=== PATIENT | female | born 1955 | race Caucasian/White ===

== ENCOUNTER → 2018-11-07 07:51 | Outpatient (CLI) | payer OTHER, SELFPAY ==
[2018-11-07 08:42] LABS: Hemoglobin A1C% w Est Avg Glu 6.4 % (4.0-6.0)
[2018-11-07 08:56] LABS: Blood Urea Nitrogen 15 mg/dL (7-17); Calcium 9.5 mg/dL (8.4-10.2); Carbon Dioxide 27 mmol/L (22-32); Chloride 101 mmol/L (98-107); Cholesterol 229 mg/dL (140-199); Estimated Glomerular Filt Rate > 60.0 mL/min (>60); Glucose 122 mg/dL (80-110); HDL Cholesterol 49 mg/dL (40-60); HEMOLYSIS < 15 (0-50); LDL Cholesterol Calculated 155 mg/dL (<100); Potassium 4.3 mmol/L (3.4-5.1); Sodium 140 mmol/L (137-145); Triglycerides 127 mg/dL (35-150)
== END ==
PROVIDERS: PCP Internal Medicine; Visit Provider Internal Medicine
DX: I10 Essential (primary) hypertension (principal); E11.9 Type 2 diabetes mellitus without complications; E78.5 Hyperlipidemia, unspecified
CPT/HCPCS: 36415; 80048; 80061; 83036

== ENCOUNTER → 2019-10-17 08:25 | Outpatient (CLI) | payer OTHER, SELFPAY ==
--- NOTE | 2019-10-17 | DI.MG.S_ITS ---
BILATERAL DIGITAL SCREENING MAMMOGRAM 3D/2D WITH CAD: 10/17/2019 CLINICAL: Routine screening. Comparison is made to exams dated: 05/03/2017 mammogram and 03/03/2015 mammogram - [facility]. The tissue of both breasts is predominantly fatty. Current study was also evaluated with a Computer Aided Detection (CAD) system. No significant masses, calcifications, or other findings are seen in either breast. There has been no significant interval change. IMPRESSION: NEGATIVE There is no mammographic evidence of malignancy. A 1 year screening mammogram is recommended. This exam was interpreted at Station ID: [id number]. NOTE: For mammograms, a report in lay terms will be sent to the patient. Approximately 15% of breast malignancies will not be visualized mammographically. In the management of a palpable breast mass, a negative mammogram must not discourage biopsy of a clinically suspicious lesion. Electronically Signed By: Jt singh/anna:10/17/2019 11:27:46 letter sent: Normal Exam ACR BI-RADS Category 1: Negative 3341F
== END ==
PROVIDERS: PCP Internal Medicine; Visit Provider Internal Medicine
DX: Z12.31 Encounter for screening mammogram for malignant neoplasm of breast (principal)
CPT/HCPCS: 77063; 77067

== ENCOUNTER → 2020-09-10 08:14 | Outpatient (CLI) | payer OTHER, SELFPAY ==
[2020-09-10 10:11] LABS: Cholesterol 205 mg/dL (140-199); HDL Cholesterol 47 mg/dL (40-60); LDL Cholesterol Calculated 123 mg/dL (<100); Triglycerides 174 mg/dL (35-150)
[2020-09-10 10:36] LABS: TSH w/ Reflex to FT4 1.93 uIU/mL (0.47-4.68)
[2020-09-10 10:57] LABS: Vitamin B12 389 pg/mL (239-931)
[2020-09-10 13:33] LABS: Mean Corpuscular HGB Conc 33.4 % (30-36); Mean Corpuscular Hemoglobin 31.3 PG (26-34); Mean Corpuscular Volume 93.7 fL (80-100); Platelet Count 351 X10^3/uL (150-400); Red Blood Cell Count 4.39 X10^6/uL (4.0-5.2); Red Cell Distribution Width 13.2 % (11.6-14.8); White Blood Cell Count 9.7 X10^3/uL (4.5-11.0)
[2020-09-10 13:34] LABS: Hematocrit 41.1 % (36-46); Hemoglobin 13.7 g/dL (12.0-16.0)
== END ==
PROVIDERS: PCP Internal Medicine; Referring Provider Internal Medicine; Visit Provider Internal Medicine
DX: R53.82 Chronic fatigue, unspecified (principal); E78.5 Hyperlipidemia, unspecified
CPT/HCPCS: 36415; 80061; 82607; 84443; 85027

== ENCOUNTER → 2021-11-06 10:51 | Outpatient (CLI) | payer OTHER, SELFPAY ==
--- NOTE | 2021-11-06 | DI.MG.S_ITS ---
BILATERAL DIGITAL SCREENING MAMMOGRAM 3D/2D WITH CAD: 11/06/2021 CLINICAL: Routine screening. Comparison is made to exams dated: 10/17/2019 mammogram - [facility], 05/03/2017 mammogram, and 03/03/2015 mammogram - [facility]. There are scattered fibroglandular elements in both breasts. Current study was also evaluated with a Computer Aided Detection (CAD) system. No significant masses, calcifications, or other findings are seen in either breast. There has been no significant interval change. IMPRESSION: NEGATIVE There is no mammographic evidence of malignancy. A 1 year screening mammogram is recommended. This exam was interpreted at Station ID: [id number]. NOTE: For mammograms, a report in lay terms will be sent to the patient. Approximately 15% of breast malignancies will not be visualized mammographically. In the management of a palpable breast mass, a negative mammogram must not discourage biopsy of a clinically suspicious lesion. Electronically Signed By: Jt singh/anna:11/06/2021 12:48:15 letter sent: Normal Exam ACR BI-RADS Category 1: Negative 3341F
== END ==
PROVIDERS: PCP Internal Medicine; Referring Provider Internal Medicine; Visit Provider Internal Medicine
DX: Z12.31 Encounter for screening mammogram for malignant neoplasm of breast (principal)
CPT/HCPCS: 77063; 77067

== ENCOUNTER → 2022-12-13 09:17 | Outpatient (CLI) | payer OTHER, SELFPAY ==
--- NOTE | 2022-12-13 | DI.MG.S_ITS ---
BILATERAL DIGITAL SCREENING MAMMOGRAM 3D/2D WITH CAD: 12/13/2022 CLINICAL: Routine screening. Comparison is made to exams dated: 11/06/2021 mammogram - [facility], 05/03/2017 mammogram - [facility], and 10/17/2019 mammogram - [facility]. There are scattered areas of fibroglandular density in both breasts (category b / 25%-50% glandular tissue). Current study was also evaluated with a Computer Aided Detection (CAD) system. No significant masses, calcifications, or other findings are seen in either breast. There has been no significant interval change. IMPRESSION: NEGATIVE There is no mammographic evidence of malignancy. A 1 year screening mammogram is recommended. Based on the Tyrer Cuzick model (a risk assessment model) the patient's lifetime risk is 4.5% and her 10 year risk is 2.3%. According to the ACR, ACS, and NCCN guidelines, an annual breast MRI exam along with mammogram is recommended if the patient's lifetime risk is 20% or greater. This exam was interpreted at Station ID: [id number]. NOTE: For mammograms, a report in lay terms will be sent to the patient. Approximately 15% of breast malignancies will not be visualized mammographically. In the management of a palpable breast mass, a negative mammogram must not discourage biopsy of a clinically suspicious lesion. Electronically Signed By: Bunny cabrera/anna:12/13/2022 09:53:22 letter sent: Normal Exam ACR BI-RADS Category 1: Negative 3341F
== END ==
PROVIDERS: PCP Internal Medicine; Referring Provider Internal Medicine; Visit Provider Internal Medicine
DX: Z12.31 Encounter for screening mammogram for malignant neoplasm of breast (principal)
CPT/HCPCS: 77063; 77067

== ENCOUNTER 2023-10-06 11:55 | Emergency (ER) | payer OTHER, SELFPAY ==
[2023-10-06 12:01] VITALS: BP 131/75; PULSE 86; RESP 18; TEMP 37; O2SAT 99; BMI 41.1
--- NOTE | 2023-10-06 12:39 | ED_ITS ---
HPI - Wound/Laceration General Chief Complaint: Wound/Laceration Stated Complaint: PCP ref due to cellulitis Time Seen by Provider: 10/06/23 12:24 Source: patient Mode of arrival: Ambulatory History of Present Illness HPI narrative: 67-year-old female. Has a history of MS. Does subcutaneous injections for MS. She is been on the same medicine for 15+ years. Approximately 10 days ago she started to have skin changes to 1 of the injection sites her left lower abdomen. She went to the walk-in clinic. Was told that she had cellulitis. Was started on doxycycline. Was on that medication for a couple days. She did feel like things were improving but slowly. She then followed up with her primary doctor and had Keflex added to the doxycycline. She is since completed the course of doxycycline but is still on Keflex. Overall she states that things do seem to be improving but certainly not resolved. She denies fevers. It is tender to palpation. Over the past 24 hours she is noticed some blistering around the edges of the wound. It is draining. Related Data Home Medications Medication Instructions Recorded Confirmed glatiramer 40 mg/mL subcutaneous mg SUBCUT 09/27/23 09/27/23 syringe (Glatopa) glipizide 10 mg tablet, extended 10 mg PO DAILY 09/27/23 09/27/23 release 24 hr lisinopril 10 mg tablet 10 mg PO DAILY 09/27/23 09/27/23 metformin 500 mg tablet,extended 1,000 mg PO BID 09/27/23 09/27/23 release 24 hr modafinil 200 mg tablet 200 mg PO BID 09/27/23 09/27/23 oxybutynin chloride 15 mg 15 mg PO DAILY 09/27/23 09/27/23 tablet,extended release 24 hr rosuvastatin 5 mg tablet 5 mg PO DAILY 09/27/23 09/27/23 Previous Rx's Medication Instructions Recorded mupirocin 2 % topical ointment 1 applic topical BID 7 days #15 10/06/23 grams Allergies Allergy/AdvReac Type Severity Reaction Status Date / Time No Known Drug Allergies Allergy Unknown Unverified 03/01/18 11:53 Review of Systems Constitutional Constitutional: Reports system reviewed and no additional complaints, except as documented Gastrointestinal Gastrointestinal: Reports system reviewed and no additional complaints, except as documented Integumentary/Breasts Skin/Breast: Reports system reviewed and no additional complaints, except as documented Hematologic/Lymphatic On Anticoagulants: No Patient History Social History Smoking Status: Former smoker Smoking Status: Former smoker Exam Initial Vital Signs Initial Vital Signs: Vital Signs Temperature 98.6 F 10/06/23 12:01 Pulse Rate 86 10/06/23 12:01 Respiratory Rate 18 10/06/23 12:01 Blood Pressure 131/75 10/06/23 12:01 Pulse Oximetry 99 10/06/23 12:01 Oxygen Delivery Method Room Air 10/06/23 12:01 [facility] Head: normal to inspection and normocephalic GI Other: Abdomen is soft Skin Other: Patient has a large area on the left lower abdomen that is approximately 5 cm x 15 cm of dark beefy red skin. Along the irregular borders of this there are vesicles that are draining clear fluid. There is very minimal if any cellulitis around that area. There is induration that extends under the skin deeper than this. Neuro General: patient alert, patient awake and moves all extremities Course Orders Ordered: ED Orders 10/06/23 12:40 CT abdomen pelvis w con Stat 10/06/23 12:45 Basic Metabolic Panel Stat Complete Blood Count AUTO DIFF Stat 10/06/23 12:55 Wound Culture and Gram Stain Stat 10/06/23 15:06 Wound Culture and Gram Stain Stat Vital Signs Vital signs: Vital Signs - 8 hr 10/06/23 12:01 Temperature 98.6 F Pulse Rate 86 Respiratory Rate 18 Blood Pressure 131/75 Pulse Oximetry 99 Oxygen Delivery Method Room Air MDM - Wound/Laceration Lab Data Attestation: I reviewed the patient's lab results. 10/06/23 12:45 10/06/23 12:45 Labs: Lab Results 10/06/23 Range/Units 12:45 WBC 10.8 (4.5-11.0) X10^3/uL RBC 4.17 (4.0-5.2) X10^6/uL Hgb 12.9 (12.0-16.0) g/dL Hct 38.3 (36-46) % MCV 91.9 (80-100) fL MCH 30.9 (26-34) PG MCHC 33.7 (30-36) % RDW 13.4 (11.6-14.8) % Plt Count 437 H (150-400) X10^3/uL Neut % (Auto) 63.9 (50-75) % Lymph % (Auto) 25.6 (25-40) % [place] % (Auto) 7.1 (3-14) % Eos % (Auto) 2.6 (2-4) % Baso % (Auto) 0.8 (0-2) % Neut # (Auto) 6900 (8148-5724) /uL Lymph # (Auto) 2800 (6577-3114) /uL [place] # (Auto) 800 (0-900) /uL Eos # (Auto) 300 (0-450) /uL Baso # (Auto) 100 (0-100) /uL Sodium 135 L (137-145) mmol/L Potassium 4.0 (3.4-5.1) mmol/L Chloride 102 (98-107) mmol/L Carbon Dioxide 27 (22-32) mmol/L BUN 14 (7-17) mg/dL Creatinine 0.62 (0.52-1.04) mg/dL Estimated GFR > 60 (>60) mL/min BUN/Creatinine Ratio 22.6 H (6-22) Glucose 135 H (80-110) mg/dL Calcium 9.6 (8.4-10.2) mg/dL Imaging Data CT scan - abdomen/pelvis: Radiologist's Impression: PROCEDURE: CT ABDOMEN PELVIS W CON INDICATIONS: L sided abdominal cellulitis induration eval for deep absces TECHNIQUE: After the administration of intravenous contrast, axial sections acquired from the lung bases to the pubic symphysis. Coronal and sagittal reformats were performed. For radiation dose reduction, the following was used: automated exposure control, adjustment of mA and/or kV according to patient size. COMPARISON: None. FINDINGS: Image quality: Excellent. Lung bases: Unremarkable. Heart: No significant findings. ABDOMEN: Liver: Mild diffuse hepatic steatosis. Gallbladder: Is unremarkable without calcified gallstones. Biliary ducts: Unremarkable. Pancreas: Unremarkable. Spleen: Unremarkable. Adrenal Glands: Unremarkable. Kidneys and Ureters: Unremarkable. Stomach and Bowel: Diverticulosis without evidence of diverticulitis. Peritoneum: No abnormal intraperitoneal fluid. No free air. Ventral Wall: There is mild cellulitic change in the left anterior abdominal subcutaneous fat immediately subjacent to the skin. The overlying skin is thickened. There is no abscess noted. No masses are seen. Abdominal Nodes: No retroperitoneal or mesenteric adenopathy by size criteria. Vessels: Aorta and inferior vena cava are normal in size. PELVIS: Pelvic Organs: Unremarkable. Bladder: Unremarkable. Pelvic Nodes: No enlarged lymph nodes. Miscellaneous: No hernias are seen. Bones: Lumbar degenerative change. No lytic or blastic bony lesions. No compression fractures. IMPRESSION: 1. Mild cellulitic change in the left anterior abdominal subcutaneous fat without abscess cavity or soft tissue gas. 2. No acute abdominal process. 3. Diverticulosis. 4. Mild diffuse hepatic steatosis. MDM Narrative Medical decision making narrative: CT scan does not show any underlying abscess. There is a well-demarcated edge around the area of skin discoloration that does have vesicles. This was cultured. Overall patient states that she feels like things are improving. There is no indication for IV antibiotics. No indication for admission to the hospital. Is afebrile. No leukocytosis. She is on Keflex. Will not change any medications until the culture results. I do think that a topical mupirocin maybe helpful. She was given return precautions and follow-up instructions. She expressed understanding and agreement. Discharge Plan Departure Patient Disposition: Home Clinical Impression: Cellulitis Instructions: Cellulitis Activity Restrictions/Additional Instructions: I do recommend that you continue with the antibiotics. You can use the topical antibiotic as well. Recommend you contact your primary care provider for a follow-up. You can shower like normal. You can put bandages over the area. Return to the emergency department for new symptoms. Prescriptions: New mupirocin 2 % ointment 1 applic topical BID 7 Days Qty: 15 2RF No Action modafinil 200 mg tablet 200 mg PO BID rosuvastatin 5 mg tablet 5 mg PO DAILY lisinopril 10 mg tablet 10 mg PO DAILY metformin 500 mg tablet extended release 24 hr 1,000 mg PO BID glatiramer [Glatopa] 40 mg/mL syringe SUBCUT Patient Comments: [NO ORIGINAL SIG] oxybutynin chloride 15 mg tablet extended release 24hr 15 mg PO DAILY glipizide 10 mg tablet extended release 24hr 10 mg PO DAILY Referrals: Allyssa Bernal MD [Primary Care Provider] - Stand Alone Forms: Patient Portal/API
[2023-10-06 12:59] LABS: Add Manual Diff / Slide Review NO; Basophils Absolute Auto 100 /uL (0-100); Basophils Percent Auto 0.8 % (0-2); Eosinophils Absolute Auto 300 /uL (0-450); Eosinophils Percent Auto 2.6 % (2-4); Hematocrit 38.3 % (36-46); Hemoglobin 12.9 g/dL (12.0-16.0); Lymphocytes Absolute Auto 2800 /uL (1100-4500); Lymphocytes Percent Auto 25.6 % (25-40); Mean Corpuscular HGB Conc 33.7 % (30-36); Mean Corpuscular Hemoglobin 30.9 PG (26-34); Mean Corpuscular Volume 91.9 fL (80-100); Monocytes Absolute Auto 800 /uL (0-900); Monocytes Percent Auto 7.1 % (3-14); Neutrophils Absolute Auto 6900 /uL (1500-7000); Neutrophils Percent Auto 63.9 % (50-75); Platelet Count 437 X10^3/uL (150-400); Red Blood Cell Count 4.17 X10^6/uL (4.0-5.2); Red Cell Distribution Width 13.4 % (11.6-14.8); White Blood Cell Count 10.8 X10^3/uL (4.5-11.0)
[2023-10-06 13:17] LABS: BUN Creatinine Ratio 22.6 (6-22); Blood Urea Nitrogen 14 mg/dL (7-17); Calcium 9.6 mg/dL (8.4-10.2); Carbon Dioxide 27 mmol/L (22-32); Chloride 102 mmol/L (98-107); Estimated Glomerular Filt Rate > 60 mL/min (>60); Glucose 135 mg/dL (80-110); HEMOLYSIS < 15 (0-50); Sodium 135 mmol/L (137-145)
[2023-10-06 15:19] VITALS: BP 126/72; PULSE 88; RESP 16; TEMP 36.8; O2SAT 98
== END 2023-10-06 15:20 | disposition home or self-care (01) ==
PROVIDERS: Emergency Provider Emergency Medicine; PCP Internal Medicine
DX: L03.311 Cellulitis of abdominal wall (principal)
CPT/HCPCS: 36415; 74177; 80048; 85025; 87070; 87075; 87205; 99284; Q9967

== ENCOUNTER → 2024-03-30 17:03 | Outpatient (CLI) | payer OTHER, SELFPAY ==
--- NOTE | 2024-03-30 17:05 | DI.RAD.S_ITS ---
PROCEDURE: XR ANKLE RT MIN 3V INDICATIONS: right Achilles swelling x 1 week. No trauma. TECHNIQUE: 3 views of the ankle were acquired. COMPARISON: None. FINDINGS: Bones: No fractures or dislocations. Ankle mortise is normally aligned. No suspicious bony lesions. Screw at the 5th metatarsal shaft. Plantar calcaneal spur. Soft tissues: No tibiotalar joint effusion. Achilles tendon is grossly unremarkable. IMPRESSION: No fracture demonstrated. Consider further evaluation with MRI to evaluate the Achilles tendon. Dictated by: Jasiel Calixto M.D. on 03/30/2024 at 18:45 Approved by: Jasiel Calixot M.D. on 03/30/2024 at 18:46
== END ==
PROVIDERS: PCP Internal Medicine; Referring Provider Physician Assistant Medical; Visit Provider Physician Assistant Medical
DX: M76.61 Achilles tendinitis, right leg (principal); M77.31 Calcaneal spur, right foot
CPT/HCPCS: 73610

== ENCOUNTER 2024-08-07 09:00 | Outpatient (RCR) | payer OTHER, SELFPAY ==
--- NOTE | 2024-05-16 16:01 | PT.OIE ---
Current Diagnoses Stiffness of right ankle, not elsewhere classified (05/16/24) Achilles tendinitis, right leg (05/16/24) Other lack of coordination (05/16/24) Weakness (05/16/24) Visit Care Team Role Provider Type Allyssa Bernal MD Attending Provider Physician Family Provider Primary Care Provider Referring Provider Specialty: Internal Medicine Address: [place], [address] Email: Physical Therapy Initial Evaluation PT-OP-A Visit Information Start: 05/16/24 11:17 Freq: Status: Active Protocol: Document 05/16/24 11:18 NM (Rec: 05/16/24 12:16 NM [id number]) Out-Patient Physical Therapy Visit Information Visit Information Visit Type Initial Evaluation Visit Note 12 visits Visit Start Time 11:18 Visit Stop Time 12:00 Visit Number 1 Evaluation Information Evaluation Date 05/16/24 Precautions Precautions MS, blood pressure PT-OP-B Current Condition Start: 05/16/24 11:17 Freq: Status: Active Protocol: Document 05/16/24 11:18 NM (Rec: 05/16/24 12:16 NM [id number]) Current Condition History of Current Condition Onset Date several months ago Current Complaints pain, weakness, ROM, ADLs History of Current Condition Pt presents with R achilles tendinitis and plantar fasciiitis on the L foot. She recalls that she had this previously 20 years ago, PT helped, same ankle. She has been to the walk in clinic. She has swelling along the Achilles tendon, less swelling . States improving but still limiting. She has been wearing shoes to assist with the plantar fasciitis. Has been stretching R calf in staggered stance. Reports that her ankles feel like they roll in when walking, can see on her shoes, has been a problem and she is aware. She states that the pain comes and goes. Currently, retired. States that has been occurring since early 2023, unknown [place]AW[place]; she reports that many years ago ( original injury- felt a pop, after starting a running group and was running/playing soccer going from minimal activity to maximal activity). She has diabetes and peripheral numbness in R foot; also has MS. 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 Functional Limitations- Mobility/Gait walk dog (a couple miles) Functional Limitations- Work/School retired Functional Limitations- Recreation/ gardening, gathering Hobbies PT-OP-C Subjective Start: 05/16/24 11:17 Freq: Status: Active Protocol: Document 05/16/24 11:18 NM (Rec: 05/16/24 12:16 NM [id number]) OP-PT Subjective Patient Comments Patient Comments Pt agrees to participate in evaluation Patient Questionnaires Foot & Ankle Ability Measure- ADL and Sports FAAM-ADL Score 3484 FAAM-Sport Score 32 Lower Extremity Functional Scale LEFS Score OP-PT Pain Assessment Location L foot Pain Location Details plantar fascia Intensity 4 Scale Used Numeric (0 - 10) Description Aching,Dull Frequency Constant Pain Aggravating Factors ADL's,Activity,Standing, Walking Other Pain Aggravating Factors has a 2nd floor Pain Alleviating Factors Massage R ankle Pain Location Details along achilles Intensity 5 Scale Used Numeric (0 - 10) Description Sharp Frequency Frequent Pain Aggravating Factors ADL's,Activity,Standing, Walking Pain Alleviating Factors Cold,Medication,Sitting,Rest Other Pain Alleviating Factors stretching; tylenol, ankle sleeve PT-OP-E Functional Tests Start: 05/16/24 11:17 Freq: Status: Active Protocol: Document 05/16/24 11:18 NM (Rec: 05/16/24 12:16 NM [id number]) Functional Tests Five Times Sit to Stand Test Score 18.9 sec Comments painful in L foot, none in R PT-OP-F Manual Assessment Start: 05/16/24 11:17 Freq: Status: Active Protocol: Document 05/16/24 11:18 NM (Rec: 05/16/24 12:16 NM [id number]) Manual Assessments Soft Tissue Assessment Soft Tissue Mobility Assessment limited B ankle dorsiflexion. Swelling and increased thickness of R achilles tendon , above insertion at heel Joint Mobility Assessment Joint Mobility Assessment Limited R ankle talocrural mobility, B 1st toe extension PT-OP-G Mobility & Gait Start: 05/16/24 11:17 Freq: Status: Active Protocol: Document 05/16/24 11:18 NM (Rec: 05/16/24 12:16 NM [id number]) OP Gait Assessment Gait Gait Assistance Required: Independent Distance (Feet) 150 Assistive Devices Assistive Device None Gait Deviations General Gait Pattern Antalgic,Decreased Stride Length,Decreased Feet Clearance Comments Gait Comments Antalgic gait. She does not put L heel on ground. Demonstrates pronation bilaterally, flat arch on L foot and low arch on R foot. Demonstrates B hip and foot ER with gait, quick toe off bilaterally to decrease stance time. Trunk lean each direction PT-OP-J Posture/Palpation/Skin Start: 05/16/24 11:17 Freq: Status: Active Protocol: Document 05/16/24 11:18 NM (Rec: 05/16/24 12:16 NM [id number]) Posture Evaluation Position Standing Head/C-Spine Posture Forward Head T-Spine Posture Increased Kyphosis Pelvis Posture Anteriorly Tilted Weight Distribution Weight Shifted Left Hip Posture (L) Externally Rotated,(R) Externally Rotated Knee Posture (L) Genu Valgus,(R) Genu Valgus Ankle/Foot Posture (L) Pronated,(R) Pronated Foot Arch (R) Low Arch,(L) No Arch Palpation Assessment Location L foot Palpation Details Mild tenderness of plantar fascia 24 cm around malleoli as comparison R ankle Palpation Details Tenderness and swollen R achilles, 25 cm along entire ankle around malleoli Tenderness proximally and distally but not along heel PT-OP-K Range of Motion Start: 05/16/24 11:17 Freq: Status: Active Protocol: Document 05/16/24 11:18 NM (Rec: 05/16/24 12:16 NM [id number]) Ankle and Foot Goniometric Range of Motion Ankle and Foot Right Dorsiflexion with Knee Flexed 3 Plantarflexion 40 Inversion 25 Eversion 10 Comments inversion and PF painful Left Dorsiflexion with Knee Flexed 3 Plantarflexion 40 Inversion 20 Eversion 5 PT-OP-L Special Tests Start: 05/16/24 11:17 Freq: Status: Active Protocol: Document 05/16/24 11:18 NM (Rec: 05/16/24 12:16 NM [id number]) Special Tests Foot/Ankle Special Tests Windlass Test Results + Comments R Dennis Test Results - Comments intact B PT-OP-M Strength Start: 05/16/24 11:17 Freq: Status: Active Protocol: Document 05/16/24 11:18 NM (Rec: 05/16/24 12:16 NM [id number]) Hip Strength Hip Manual Muscle Testing Right Flexion (L2) 4- Good- Extension (S1) 4- Good- Abduction 4- Good- Adduction 4- Good- Left Flexion (L2) 4- Good- Extension (S1) 4- Good- Abduction 4- Good- Adduction 4- Good- Knee Strength Knee Manual Muscle Testing Right Flexion (S2) 4- Good- Extension (L3) 4- Good- Left Flexion (S2) 4- Good- Extension (L3) 4- Good- Ankle/Foot Strength Ankle and Foot Manual Muscle Testing Right Dorsiflexion (L4) 4 Good Inversion 4 Good Eversion (S1) 4 Good Comments Unable to perform a single heel raise Can perform 3 B heel raises, increased pain Left Dorsiflexion (L4) 4 Good Inversion 4 Good Eversion (S1) 4 Good Comments Unable to perform a single heel raise, increased pain with effort Can perform 3 B heel raises, increased pain PT-OP-Q Treatments Start: 05/16/24 11:17 Freq: Status: Active Protocol: Document 05/16/24 11:18 NM (Rec: 05/16/24 12:16 NM [id number]) Therapeutic Exercises Sitting Exercises 1st Toe ext stretch Side bilateral Reps/Minutes 1x60 ea Comments cued for correct execution and comfortable stretch Self-Care/Home Management Treatment Education Patient Education Home Exercise Program Other Education HEP: great toe ext stretch PT-OP-T Assessment and Plan Start: 05/16/24 11:17 Freq: Status: Active Protocol: Document 05/16/24 11:18 NM (Rec: 05/16/24 12:16 NM [id number]) Physical Therapy Assessment Rehab Potential Rehabilitation Potential Fair Evaluation Complexity Number of Personal Factors/Comorbidities 3 or More Number of Body Systems Impaired 3 Clinical Presentation at Evaluation Stable Impairments Impairments Activity Tolerance,Balance, Coordination,Edema,Functional Activities,Functional Mobility ,Gait,Integument,Pain,Posture, ROM,Sensation,Soft Tissue Mobility,Strength,Transfers Other Concerns Barriers to Rehabilitation Pt has several co-morbidities including diabetes, peripheral numbness, multiple sclerosis, and blood pressure abnormalities. Pt also has limited visits per insurance and has financial constraints. Goals Five Impairment squats/sit to stands Impairment 5x STS 18.9 sec Short Term Goal (STG) Pt will be able to perform at least 10 bilateral squats without increase in R ankle pain in order to demonstrate improved BLE strength and transfers STG Duration 6 weeks Motion Picture Printer Goal (LTG) Pt will be able to perform 5x STS in 12 seconds or less in order to reach age-related norms without increase in R ankle pain in order to demonstrate improved BLE strength and transfers LTG Duration 12 weeks Four Impairment gait Impairment difficulty with ambulation due to pain Short Term Goal (STG) Pt will report that she is able to ambulate with pain <4/ 10 in R ankle at least 10 minutes in order to demonstrate improved symptom management and activity tolerance STG Duration 6 weeks Retirement Goal (LTG) Pt will report that she is able to ambulate with her dogs without increase in baseline pain in R ankle in order to demonstrate improved symptom management and activity tolerance LTG Duration 12 weeks Three Impairment strength Impairment pain with heel raises Short Term Goal (STG) Pt will be able to perform at least 10 standing B heel raises without increase in baseline pain and without compensations in order to demonstrate improved activity tolerance and symptom management STG Duration 6 weeks Retirement Goal (LTG) Pt will be able to perform at least 1 standing unilateral heel raise without increase in baseline pain and without compensations in order to demonstrate improved activity tolerance LTG Duration 12 weeks Two Impairment ROM Impairment limited B ankle DF ROM Short Term Goal (STG) Pt will improve B ankle dorsiflexion AROM to at least 5 deg in order to demonstrate improved ROM for gait and transfers, in addition to normalizing gait mechanics STG Duration 8 weeks Motion Picture [employer]inter Goal (LTG) Pt will improve B ankle dorsiflexion AROM to at least 8 deg in order to demonstrate improved ROM for gait and transfers, in addition to normalizing gait mechanics LTG Duration 12 weeks One Impairment activity tolerance Impairment unable to stand or ambulate for long periods due to pain Motion Picture Printer Goal (LTG) Pt will report that she is able to stand for at least 30 minutes before taking a break due to B foot/ankle pain in order to demonstrate improved activity tolerance for ADLs LTG Duration 12 weeks Assessment Summary Assessment Pt is a 68 y.o. female presenting to PT with R achilles pain and L plantar pain. Her symptoms and exam are consistent with dx of R Achilles tendinopathy. Pt's R Achilles is thickened, swollen , and tender to palpation. Previous imaging reveals no fractures. Pt has has successful previous PT for same condition many decades ago. She currently has impairments in ROM, strength, pain management, gait, balance , and activity tolerance during ADLs/IADLs/recreational activities. Pt currently has limitations in bilateral ankle dorsiflexion. Her remaining ROM is within functional limitations. Pt also has decreased B hip/knee/ankle strength. She has increased symptoms with B heel raises and is unable to perform single leg heel raises. Pt's gait limited due to concurrent L plantar fasciitis, likely occurring due to gait changes from R Achilles pain. Pt has several comorbidities which may influence PT outcomes, in addition to limited insurance visits. PT discussed exam findings and plan of care with pt, pt verbalizes agreement. Pt would benefit from skilled PT for progressive R achilles tendon loading and global BLE strength and ROM in order to decrease symptoms, improve activity tolerance and return to PLOF. Physical Therapy Plan Frequency and Duration Frequency of Treatment 1-2x/wk Duration of treatment (weeks) 12 Plan of Care Start Date 05/16/24 Plan of Care End Date 08/10/24 Therapeutic Interventions Therapeutic Interventions Balance Training,Coordination Training,Gait Training,Home Exercise Program,Joint Mobilizations,Manual Therapy, Neuromuscular Re-education, Orthotic/Prosthetic Management ,Patient/Caregiver Education, Self-Care/Home Management, Sensory Integration,Soft Tissue Mobilization,Taping, Therapeutic Activities, Therapeutic Exercises Modalities Cold Pack/Ice Massage,Hot Packs,Ultrasound Other Therapeutic Interventions Rigid tape Next Visit Focus/Plan Next Note Type Treatment Note Next Visit Plan Achilles Tendonitis Seated B heel raise, squat, standing heel raise 2 legs Talocrural mobilizations, rigid tape Heavy eccentrics
--- NOTE | 2024-05-18 12:29 | PT.OTN ---
Current Diagnoses Stiffness of right ankle, not elsewhere classified (05/18/24) Achilles tendinitis, right leg (05/18/24) Other lack of coordination (05/18/24) Weakness (05/18/24) Physical Therapy Treatment Note PT-OP-A Visit Information Start: 05/16/24 11:17 Freq: Status: Active Protocol: Document 05/18/24 11:11 NM (Rec: 05/18/24 12:29 NM [id number]) Out-Patient Physical Therapy Visit Information Visit Information Visit Type Treatment Note Visit Note 12 visits Visit Start Time 11:15 Visit Stop Time 12:00 Visit Number 2 Evaluation Information Evaluation Date 05/16/24 Precautions Precautions MS, blood pressure PT-OP-B Current Condition Start: 05/16/24 11:17 Freq: Status: Active Protocol: Document 05/16/24 11:18 NM (Rec: 05/16/24 12:16 NM [id number]) Current Condition History of Current Condition Onset Date several months ago Current Complaints pain, weakness, ROM, ADLs History of Current Condition Pt presents with R achilles tendinitis and plantar fasciiitis on the L foot. She recalls that she had this previously 20 years ago, PT helped, same ankle. She has been to the walk in clinic. She has swelling along the Achilles tendon, less swelling . States improving but still limiting. She has been wearing shoes to assist with the plantar fasciitis. Has been stretching R calf in staggered stance. Reports that her ankles feel like they roll in when walking, can see on her shoes, has been a problem and she is aware. She states that the pain comes and goes. Currently, retired. States that has been occurring since early 2023, unknown [place]; she reports that many years ago ( original injury- felt a pop, after starting a running group and was running/playing soccer going from minimal activity to maximal activity). She has diabetes and peripheral numbness in R foot; also has MS. 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 Functional Limitations- Mobility/Gait walk dog (a couple miles) Functional Limitations- Work/School retired Functional Limitations- Recreation/ gardening, gathering Hobbies PT-OP-C Subjective Start: 05/16/24 11:17 Freq: Status: Active Protocol: Document 05/18/24 11:11 NM (Rec: 05/18/24 12:29 NM [id number]) OP-PT Subjective Patient Comments Patient Comments Pt reports that B feet are aching. She has been walking the dog and standing to cook. HEP did not cause discomfort PT-OP-E Functional Tests Start: 05/16/24 11:17 Freq: Status: Active Protocol: Document 05/16/24 11:18 NM (Rec: 05/16/24 12:16 NM [id number]) Functional Tests Five Times Sit to Stand Test Score 18.9 sec Comments painful in L foot, none in R PT-OP-F Manual Assessment Start: 05/16/24 11:17 Freq: Status: Active Protocol: Document 05/16/24 11:18 NM (Rec: 05/16/24 12:16 NM [id number]) Manual Assessments Soft Tissue Assessment Soft Tissue Mobility Assessment limited B ankle dorsiflexion. Swelling and increased thickness of R achilles tendon , above insertion at heel Joint Mobility Assessment Joint Mobility Assessment Limited R ankle talocrural mobility, B 1st toe extension PT-OP-G Mobility & Gait Start: 05/16/24 11:17 Freq: Status: Active Protocol: Document 05/16/24 11:18 NM (Rec: 05/16/24 12:16 NM [id number]) OP Gait Assessment Gait Gait Assistance Required: Independent Distance (Feet) 150 Assistive Devices Assistive Device None Gait Deviations General Gait Pattern Antalgic,Decreased Stride Length,Decreased Feet Clearance Comments Gait Comments Antalgic gait. She does not put L heel on ground. Demonstrates pronation bilaterally, flat arch on L foot and low arch on R foot. Demonstrates B hip and foot ER with gait, quick toe off bilaterally to decrease stance time. Trunk lean each direction PT-OP-J Posture/Palpation/Skin Start: 05/16/24 11:17 Freq: Status: Active Protocol: Document 05/16/24 11:18 NM (Rec: 05/16/24 12:16 NM [id number]) Posture Evaluation Position Standing Head/C-Spine Posture Forward Head T-Spine Posture Increased Kyphosis Pelvis Posture Anteriorly Tilted Weight Distribution Weight Shifted Left Hip Posture (L) Externally Rotated,(R) Externally Rotated Knee Posture (L) Genu Valgus,(R) Genu Valgus Ankle/Foot Posture (L) Pronated,(R) Pronated Foot Arch (R) Low Arch,(L) No Arch Palpation Assessment Location L foot Palpation Details Mild tenderness of plantar fascia 24 cm around malleoli as comparison R ankle Palpation Details Tenderness and swollen R achilles, 25 cm along entire ankle around malleoli Tenderness proximally and distally but not along heel PT-OP-K Range of Motion Start: 05/16/24 11:17 Freq: Status: Active Protocol: Document 05/16/24 11:18 NM (Rec: 05/16/24 12:16 NM [id number]) Ankle and Foot Goniometric Range of Motion Ankle and Foot Right Dorsiflexion with Knee Flexed 3 Plantarflexion 40 Inversion 25 Eversion 10 Comments inversion and PF painful Left Dorsiflexion with Knee Flexed 3 Plantarflexion 40 Inversion 20 Eversion 5 PT-OP-L Special Tests Start: 05/16/24 11:17 Freq: Status: Active Protocol: Document 05/16/24 11:18 NM (Rec: 05/16/24 12:16 NM [id number]) Special Tests Foot/Ankle Special Tests Windlass Test Results + Comments R Dennis Test Results - Comments intact B PT-OP-M Strength Start: 05/16/24 11:17 Freq: Status: Active Protocol: Document 05/16/24 11:18 NM (Rec: 05/16/24 12:16 NM [id number]) Hip Strength Hip Manual Muscle Testing Right Flexion (L2) 4- Good- Extension (S1) 4- Good- Abduction 4- Good- Adduction 4- Good- Left Flexion (L2) 4- Good- Extension (S1) 4- Good- Abduction 4- Good- Adduction 4- Good- Knee Strength Knee Manual Muscle Testing Right Flexion (S2) 4- Good- Extension (L3) 4- Good- Left Flexion (S2) 4- Good- Extension (L3) 4- Good- Ankle/Foot Strength Ankle and Foot Manual Muscle Testing Right Dorsiflexion (L4) 4 Good Inversion 4 Good Eversion (S1) 4 Good Comments Unable to perform a single heel raise Can perform 3 B heel raises, increased pain Left Dorsiflexion (L4) 4 Good Inversion 4 Good Eversion (S1) 4 Good Comments Unable to perform a single heel raise, increased pain with effort Can perform 3 B heel raises, increased pain PT-OP-Q Treatments Start: 05/16/24 11:17 Freq: Status: Active Protocol: Document 05/18/24 11:11 NM (Rec: 05/18/24 12:29 NM [id number]) Therapeutic Exercises Sidelying Exercises hip abduction Side bilateral Reps/Minutes 10 ea with 2 hold Comments cued for form, leg behind body , no trunk rot; challenging Sitting Exercises ankle plantarflexion Sitting Exercise Name following standing heel raises for additional set Side right Resistance level 3 band Equipment Used knee extended and heel on ground Reps/Minutes 2x10 Comments better ROM; edu to perform as 3rd set if unable in standing heel raises Side bilateral Resistance AROM Equipment Used small orange ball between ankles Reps/Minutes 3x10 with 30-1' break between reps Comments cued for form, squeeze ball, neutral foot; improved with reps foot intrinsics Sitting Exercise Name 1. short arch raises, 2. toe spreads (abduction/adduction) Side bilateral Reps/Minutes 1. 5x1, 2. 10 with 2 Comments cued for form; challenging, verbal and tactile cues Standing Exercises heel raises Side bilateral Equipment Used ball between ankles for form; B hands on ballet bar for balance Reps/Minutes 2x10 Comments demos heel ER ,reduced w/ cues ; small range, difficult motor plan Other Exercises self soft tissue mobilization Other Exercise Name 1. R calf with ankle pump, 2, L plantar fascia Equipment Used racquetball Reps/Minutes 1 min ea Comments verbal addition to HEP Manual Therapy Treatment Consent Patient gave verbal consent for manual Yes treatment Soft Tissue Mobilization R calf Body Location calf muscle belly, achilles tendon Mobilization Type Cross-Friction,Rolling, Strumming,Other Intensity/Depth Superficial Body Position Prone Comments Legs elevated on small bolster . Performed gentle distal<> proximal soft tissue mobilization of muscle belly. Tenderness along Achilles tendon medially and laterally, gentle cross friction and strumming. Monitored for pain, pt reports tenderness but no increase in symptoms with manual treatment Self-Care/Home Management Treatment Education Patient Education Home Exercise Program,Joint Protection,Pain Management Other Education HEP: standing and seated heel raises, ankle plantarflexion with band (issue band) if needed, sidelying hip abduction, short arch raises, water bottle roller for L foot Educated on activity modification including limiting ambulation distance/ time/frequency with dog, shoe wear and recommendations on features to look for when buying (heel and arch support) , and tendonpathy pain scale PT-OP-T Assessment and Plan Start: 05/16/24 11:17 Freq: Status: Active Protocol: Document 05/18/24 11:11 NM (Rec: 05/18/24 12:29 NM [id number]) Physical Therapy Assessment Goals Five Impairment squats/sit to stands Impairment 5x STS 18.9 sec Short Term Goal (STG) Pt will be able to perform at least 10 bilateral squats without increase in R ankle pain in order to demonstrate improved BLE strength and transfers STG Duration 6 weeks Fpc Goal (LTG) Pt will be able to perform 5x STS in 12 seconds or less in order to reach age-related norms without increase in R ankle pain in order to demonstrate improved BLE strength and transfers LTG Duration 12 weeks Four Impairment gait Impairment difficulty with ambulation due to pain Short Term Goal (STG) Pt will report that she is able to ambulate with pain <4/ 10 in R ankle at least 10 minutes in order to demonstrate improved symptom management and activity tolerance STG Duration 6 weeks Fpc Goal (LTG) Pt will report that she is able to ambulate with her dogs without increase in baseline pain in R ankle in order to demonstrate improved symptom management and activity tolerance LTG Duration 12 weeks Three Impairment strength Impairment pain with heel raises Short Term Goal (STG) Pt will be able to perform at least 10 standing B heel raises without increase in baseline pain and without compensations in order to demonstrate improved activity tolerance and symptom management STG Duration 6 weeks Brim Setter Goal (LTG) Pt will be able to perform at least 1 standing unilateral heel raise without increase in baseline pain and without compensations in order to demonstrate improved activity tolerance LTG Duration 12 weeks Two Impairment ROM Impairment limited B ankle DF ROM Short Term Goal (STG) Pt will improve B ankle dorsiflexion AROM to at least 5 deg in order to demonstrate improved ROM for gait and transfers, in addition to normalizing gait mechanics STG Duration 8 weeks Brim Setter Goal (LTG) Pt will improve B ankle dorsiflexion AROM to at least 8 deg in order to demonstrate improved ROM for gait and transfers, in addition to normalizing gait mechanics LTG Duration 12 weeks One Impairment activity tolerance Impairment unable to stand or ambulate for long periods due to pain Brim Setter Goal (LTG) Pt will report that she is able to stand for at least 30 minutes before taking a break due to B foot/ankle pain in order to demonstrate improved activity tolerance for ADLs LTG Duration 12 weeks Assessment Summary Assessment Pt tolerated session well. Initiated concentric-eccentric loading of R Achilles, which pt tolerated well only reporting increased soreness but no pain. Pt has full R ankle plantarflexion ROM in long sitting with resistance band or in sitting. However, demonstrates reduced B ROM with standing concentric heel raises. Tendency for heels to move into ER during seated and standing heel raises, reduced with ball for tactile cue. Due to concurrent plantarflexion on contralateral leg, educated pt and provided foot intrinsic exercises in addition to previous HEP in order to reduce symptoms in preparation for future progressions with R achilles tendon loading. Pt is most limited by motor planning and movement coordination, likely related to MS. She has moderate difficulty with standing ankle plantarflexion or utilizing external cues for form. Pt would benefit from skilled PT for progressive R achilles tendon loading and hip strengthening in order to improve symptom management and ability to participate in ADLs. Physical Therapy Plan Frequency and Duration Frequency of Treatment 1-2x/wk Duration of treatment (weeks) 12 Plan of Care Start Date 05/16/24 Plan of Care End Date 08/10/24 Therapeutic Interventions Therapeutic Interventions Balance Training,Coordination Training,Gait Training,Home Exercise Program,Joint Mobilizations,Manual Therapy, Neuromuscular Re-education, Orthotic/Prosthetic Management ,Patient/Caregiver Education, Self-Care/Home Management, Sensory Integration,Soft Tissue Mobilization,Taping, Therapeutic Activities, Therapeutic Exercises Modalities Cold Pack/Ice Massage,Hot Packs,Ultrasound Other Therapeutic Interventions Rigid tape Next Visit Focus/Plan Next Note Type Treatment Note Next Visit Plan Achilles Tendonitis NO STRETCHING Review and add resistance to seated B heel raise, 3rd set for standing heel raise, Next: squat vs STS Talocrural mobilizations, rigid tape only Progress to Heavy eccentrics
--- NOTE | 2024-05-22 11:20 | PT.OTN ---
Current Diagnoses Stiffness of right ankle, not elsewhere classified (05/22/24) Achilles tendinitis, right leg (05/22/24) Other lack of coordination (05/22/24) Weakness (05/22/24) Physical Therapy Treatment Note PT-OP-A Visit Information Start: 05/16/24 11:17 Freq: Status: Active Protocol: Document 05/22/24 10:36 NM (Rec: 05/22/24 11:18 NM [id number]) Out-Patient Physical Therapy Visit Information Visit Information Visit Type Treatment Note Visit Note 12 visits Visit Start Time 10:36 Visit Stop Time 11:15 Visit Number 3 Evaluation Information Evaluation Date 05/16/24 Precautions Precautions MS, blood pressure PT-OP-B Current Condition Start: 05/16/24 11:17 Freq: Status: Active Protocol: Document 05/16/24 11:18 NM (Rec: 05/16/24 12:16 NM [id number]) Current Condition History of Current Condition Onset Date several months ago Current Complaints pain, weakness, ROM, ADLs History of Current Condition Pt presents with R achilles tendinitis and plantar fasciiitis on the L foot. She recalls that she had this previously 20 years ago, PT helped, same ankle. She has been to the walk in clinic. She has swelling along the Achilles tendon, less swelling . States improving but still limiting. She has been wearing shoes to assist with the plantar fasciitis. Has been stretching R calf in staggered stance. Reports that her ankles feel like they roll in when walking, can see on her shoes, has been a problem and she is aware. She states that the pain comes and goes. Currently, retired. States that has been occurring since early 2023, unknown [place]AW[place]; she reports that many years ago ( original injury- felt a pop, after starting a running group and was running/playing soccer going from minimal activity to maximal activity). She has diabetes and peripheral numbness in R foot; also has MS. 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 Functional Limitations- Mobility/Gait walk dog (a couple miles) Functional Limitations- Work/School retired Functional Limitations- Recreation/ gardening, gathering Hobbies PT-OP-C Subjective Start: 05/16/24 11:17 Freq: Status: Active Protocol: Document 05/22/24 10:36 NM (Rec: 05/22/24 11:18 NM [id number]) OP-PT Subjective Patient Comments Patient Comments Pt reports sore after last session. Did not do exercises over weekend because had 8-5 meetings both days over weekend. R achilles 5/10, L plantar fascia 6/10. Debby did toe exercises over weekend PT-OP-E Functional Tests Start: 05/16/24 11:17 Freq: Status: Active Protocol: Document 05/16/24 11:18 NM (Rec: 05/16/24 12:16 NM [id number]) Functional Tests Five Times Sit to Stand Test Score 18.9 sec Comments painful in L foot, none in R PT-OP-F Manual Assessment Start: 05/16/24 11:17 Freq: Status: Active Protocol: Document 05/16/24 11:18 NM (Rec: 05/16/24 12:16 NM [id number]) Manual Assessments Soft Tissue Assessment Soft Tissue Mobility Assessment limited B ankle dorsiflexion. Swelling and increased thickness of R achilles tendon , above insertion at heel Joint Mobility Assessment Joint Mobility Assessment Limited R ankle talocrural mobility, B 1st toe extension PT-OP-G Mobility & Gait Start: 05/16/24 11:17 Freq: Status: Active Protocol: Document 05/16/24 11:18 NM (Rec: 05/16/24 12:16 NM [id number]) OP Gait Assessment Gait Gait Assistance Required: Independent Distance (Feet) 150 Assistive Devices Assistive Device None Gait Deviations General Gait Pattern Antalgic,Decreased Stride Length,Decreased Feet Clearance Comments Gait Comments Antalgic gait. She does not put L heel on ground. Demonstrates pronation bilaterally, flat arch on L foot and low arch on R foot. Demonstrates B hip and foot ER with gait, quick toe off bilaterally to decrease stance time. Trunk lean each direction PT-OP-J Posture/Palpation/Skin Start: 05/16/24 11:17 Freq: Status: Active Protocol: Document 05/16/24 11:18 NM (Rec: 05/16/24 12:16 NM [id number]) Posture Evaluation Position Standing Head/C-Spine Posture Forward Head T-Spine Posture Increased Kyphosis Pelvis Posture Anteriorly Tilted Weight Distribution Weight Shifted Left Hip Posture (L) Externally Rotated,(R) Externally Rotated Knee Posture (L) Genu Valgus,(R) Genu Valgus Ankle/Foot Posture (L) Pronated,(R) Pronated Foot Arch (R) Low Arch,(L) No Arch Palpation Assessment Location L foot Palpation Details Mild tenderness of plantar fascia 24 cm around malleoli as comparison R ankle Palpation Details Tenderness and swollen R achilles, 25 cm along entire ankle around malleoli Tenderness proximally and distally but not along heel PT-OP-K Range of Motion Start: 05/16/24 11:17 Freq: Status: Active Protocol: Document 05/16/24 11:18 NM (Rec: 05/16/24 12:16 NM [id number]) Ankle and Foot Goniometric Range of Motion Ankle and Foot Right Dorsiflexion with Knee Flexed 3 Plantarflexion 40 Inversion 25 Eversion 10 Comments inversion and PF painful Left Dorsiflexion with Knee Flexed 3 Plantarflexion 40 Inversion 20 Eversion 5 PT-OP-L Special Tests Start: 05/16/24 11:17 Freq: Status: Active Protocol: Document 05/16/24 11:18 NM (Rec: 05/16/24 12:16 NM [id number]) Special Tests Foot/Ankle Special Tests Windlass Test Results + Comments R Dennis Test Results - Comments intact B PT-OP-M Strength Start: 05/16/24 11:17 Freq: Status: Active Protocol: Document 05/16/24 11:18 NM (Rec: 05/16/24 12:16 NM [id number]) Hip Strength Hip Manual Muscle Testing Right Flexion (L2) 4- Good- Extension (S1) 4- Good- Abduction 4- Good- Adduction 4- Good- Left Flexion (L2) 4- Good- Extension (S1) 4- Good- Abduction 4- Good- Adduction 4- Good- Knee Strength Knee Manual Muscle Testing Right Flexion (S2) 4- Good- Extension (L3) 4- Good- Left Flexion (S2) 4- Good- Extension (L3) 4- Good- Ankle/Foot Strength Ankle and Foot Manual Muscle Testing Right Dorsiflexion (L4) 4 Good Inversion 4 Good Eversion (S1) 4 Good Comments Unable to perform a single heel raise Can perform 3 B heel raises, increased pain Left Dorsiflexion (L4) 4 Good Inversion 4 Good Eversion (S1) 4 Good Comments Unable to perform a single heel raise, increased pain with effort Can perform 3 B heel raises, increased pain PT-OP-Q Treatments Start: 05/16/24 11:17 Freq: Status: Active Protocol: Document 05/22/24 10:36 NM (Rec: 05/22/24 11:18 NM [id number]) Therapeutic Exercises Prone Exercises hip extension Side bilateral Resistance AROM Reps/Minutes 2x10 with brief hold Comments post manual tx; cued glute squeeze vs lumbar Sidelying Exercises hip abduction Sidelying Exercise Name with hip IR Side bilateral Reps/Minutes 15 ea with 2 hold Comments cued for leg alignment behind body, less PF, no toes to pauline Sitting Exercises calf stretch Sitting Exercise Name LEFT SIDE ONLY FOR PLANTAR FASCIAL PAIN Side left Equipment Used towel Reps/Minutes 60 Comments educated not to perform on R side d/t tendon irritation; gentle stretch heel raises Side bilateral Resistance AROM Equipment Used medium blue ball between ankles for alignment Reps/Minutes 3x10 with 30-1' break between reps Comments improved ankle/toe alignment with larger ball, increased ROM Standing Exercises heel raises Side bilateral Equipment Used ball between ankles for form; B hands on ballet bar for balance Reps/Minutes 3x10 Comments improved ankle stability w/ larger ball, small ROM; cued equal WB Manual Therapy Treatment Consent Patient gave verbal consent for manual Yes treatment Soft Tissue Mobilization R calf Body Location calf muscle belly, achilles tendon Mobilization Type Cross-Friction,Rolling, Strumming,Other Intensity/Depth Superficial Body Position Prone Comments Legs elevated on small bolster . Performed gentle distal<> proximal soft tissue mobilization of muscle belly. Tenderness along Achilles tendon medially and laterally, gentle cross friction and strumming. Monitored for pain, pt reports tenderness but no increase in symptoms with manual treatment Joint Mobilizations R talocrural Direction post Grade II Body Position Hooklying Reps/Duration 2x30 Comments For pain reduction and to begin improving ankle dorsiflexion mobility. Change in hand position for pt comfort, but pt still reports R achilles discomfort. Educated on rationale behind mobilization, importance of ankle dorsiflexion for gait and functional mobility PT-OP-T Assessment and Plan Start: 05/16/24 11:17 Freq: Status: Active Protocol: Document 05/22/24 10:36 NM (Rec: 05/22/24 11:18 NM [id number]) Physical Therapy Assessment Goals Five Impairment squats/sit to stands Impairment 5x STS 18.9 sec Short Term Goal (STG) Pt will be able to perform at least 10 bilateral squats without increase in R ankle pain in order to demonstrate improved BLE strength and transfers STG Duration 6 weeks Longterm Goal (LTG) Pt will be able to perform 5x STS in 12 seconds or less in order to reach age-related norms without increase in R ankle pain in order to demonstrate improved BLE strength and transfers LTG Duration 12 weeks Four Impairment gait Impairment difficulty with ambulation due to pain Short Term Goal (STG) Pt will report that she is able to ambulate with pain <4/ 10 in R ankle at least 10 minutes in order to demonstrate improved symptom management and activity tolerance STG Duration 6 weeks Learning Designer Goal (LTG) Pt will report that she is able to ambulate with her dogs without increase in baseline pain in R ankle in order to demonstrate improved symptom management and activity tolerance LTG Duration 12 weeks Three Impairment strength Impairment pain with heel raises Short Term Goal (STG) Pt will be able to perform at least 10 standing B heel raises without increase in baseline pain and without compensations in order to demonstrate improved activity tolerance and symptom management STG Duration 6 weeks Longterm Goal (LTG) Pt will be able to perform at least 1 standing unilateral heel raise without increase in baseline pain and without compensations in order to demonstrate improved activity tolerance LTG Duration 12 weeks Two Impairment ROM Impairment limited B ankle DF ROM Short Term Goal (STG) Pt will improve B ankle dorsiflexion AROM to at least 5 deg in order to demonstrate improved ROM for gait and transfers, in addition to normalizing gait mechanics STG Duration 8 weeks Learning Designer Goal (LTG) Pt will improve B ankle dorsiflexion AROM to at least 8 deg in order to demonstrate improved ROM for gait and transfers, in addition to normalizing gait mechanics LTG Duration 12 weeks One Impairment activity tolerance Impairment unable to stand or ambulate for long periods due to pain Longterm Goal (LTG) Pt will report that she is able to stand for at least 30 minutes before taking a break due to B foot/ankle pain in order to demonstrate improved activity tolerance for ADLs LTG Duration 12 weeks Assessment Summary Assessment Pt tolerated session well. Continued with Achilles loading progression from last session, no changes to progression as pt has not performed since Tuesday. Improved ankle-hip alignment and fewer ankle compensations with larger ball. Pt also demonstrates improved motor coordination this session, especially with postural cues. Able to perform 3 reps for standing heel raises. Right Achilles tendon pain levels remainined within the acceptable range Initiated prone hip extension and sit to stand for glute strengthening to promote proximal stability . During sidelying hip abduction, pt requires moderate cues to limit compensations promoting movements at anterior hip. Improved tolerance for soft tissue mobilization of R Achilles and calf, but poor tolerance for grade II R ankle posterior glide mobilization. Educated on importance of ankle dorsiflexion and rationale behind not stretching R ankle, but discontinued this session due to pt discomfort. Doris would benefit from skilled PT for progressive Achilles tendon loading and activity modification in order to improve activity tolerance, mobility, and symptom management. Physical Therapy Plan Frequency and Duration Frequency of Treatment 1-2x/wk Duration of treatment (weeks) 12 Plan of Care Start Date 05/16/24 Plan of Care End Date 08/10/24 Therapeutic Interventions Therapeutic Interventions Balance Training,Coordination Training,Gait Training,Home Exercise Program,Joint Mobilizations,Manual Therapy, Neuromuscular Re-education, Orthotic/Prosthetic Management ,Patient/Caregiver Education, Self-Care/Home Management, Sensory Integration,Soft Tissue Mobilization,Taping, Therapeutic Activities, Therapeutic Exercises Modalities Cold Pack/Ice Massage,Hot Packs,Ultrasound Other Therapeutic Interventions Rigid tape Next Visit Focus/Plan Next Note Type Treatment Note Next Visit Plan Achilles Tendonitis NO STRETCHING Review and add resistance to seated B heel raise, 3rd set for standing heel raise, Next: squat vs STS Talocrural mobilizations, rigid tape only Progress to Heavy eccentrics
--- NOTE | 2024-05-29 11:32 | PT.OTN ---
Current Diagnoses Stiffness of right ankle, not elsewhere classified (05/29/24) Achilles tendinitis, right leg (05/29/24) Other lack of coordination (05/29/24) Weakness (05/29/24) Physical Therapy Treatment Note PT-OP-A Visit Information Start: 05/16/24 11:17 Freq: Status: Active Protocol: Document 05/29/24 10:34 NM (Rec: 05/29/24 11:32 NM [id number]) Out-Patient Physical Therapy Visit Information Visit Information Visit Type Treatment Note Visit Note 12 visits Visit Start Time 10:35 Visit Stop Time 11:15 Visit Number 4 Evaluation Information Evaluation Date 05/16/24 Precautions Precautions MS, blood pressure PT-OP-B Current Condition Start: 05/16/24 11:17 Freq: Status: Active Protocol: Document 05/16/24 11:18 NM (Rec: 05/16/24 12:16 NM [id number]) Current Condition History of Current Condition Onset Date several months ago Current Complaints pain, weakness, ROM, ADLs History of Current Condition Pt presents with R achilles tendinitis and plantar fasciiitis on the L foot. She recalls that she had this previously 20 years ago, PT helped, same ankle. She has been to the walk in clinic. She has swelling along the Achilles tendon, less swelling . States improving but still limiting. She has been wearing shoes to assist with the plantar fasciitis. Has been stretching R calf in staggered stance. Reports that her ankles feel like they roll in when walking, can see on her shoes, has been a problem and she is aware. She states that the pain comes and goes. Currently, retired. States that has been occurring since early 2023, unknown [place]AW[place]; she reports that many years ago ( original injury- felt a pop, after starting a running group and was running/playing soccer going from minimal activity to maximal activity). She has diabetes and peripheral numbness in R foot; also has MS. 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 Functional Limitations- Mobility/Gait walk dog (a couple miles) Functional Limitations- Work/School retired Functional Limitations- Recreation/ gardening, gathering Hobbies PT-OP-C Subjective Start: 05/16/24 11:17 Freq: Status: Active Protocol: Document 05/29/24 10:34 NM (Rec: 05/29/24 11:32 NM [id number]) OP-PT Subjective Patient Comments Patient Comments Pt reports that she is 3-4/10 on R achilles and 4/10 on L plantar fascia. States pain reducing overall. Reports compliance with exercises every day, only difficulty with sidelying hip abduction as pt has to perform on floor PT-OP-E Functional Tests Start: 05/16/24 11:17 Freq: Status: Active Protocol: Document 05/16/24 11:18 NM (Rec: 05/16/24 12:16 NM [id number]) Functional Tests Five Times Sit to Stand Test Score 18.9 sec Comments painful in L foot, none in R PT-OP-F Manual Assessment Start: 05/16/24 11:17 Freq: Status: Active Protocol: Document 05/16/24 11:18 NM (Rec: 05/16/24 12:16 NM [id number]) Manual Assessments Soft Tissue Assessment Soft Tissue Mobility Assessment limited B ankle dorsiflexion. Swelling and increased thickness of R achilles tendon , above insertion at heel Joint Mobility Assessment Joint Mobility Assessment Limited R ankle talocrural mobility, B 1st toe extension PT-OP-G Mobility & Gait Start: 05/16/24 11:17 Freq: Status: Active Protocol: Document 05/16/24 11:18 NM (Rec: 05/16/24 12:16 NM [id number]) OP Gait Assessment Gait Gait Assistance Required: Independent Distance (Feet) 150 Assistive Devices Assistive Device None Gait Deviations General Gait Pattern Antalgic,Decreased Stride Length,Decreased Feet Clearance Comments Gait Comments Antalgic gait. She does not put L heel on ground. Demonstrates pronation bilaterally, flat arch on L foot and low arch on R foot. Demonstrates B hip and foot ER with gait, quick toe off bilaterally to decrease stance time. Trunk lean each direction PT-OP-J Posture/Palpation/Skin Start: 05/16/24 11:17 Freq: Status: Active Protocol: Document 05/16/24 11:18 NM (Rec: 05/16/24 12:16 NM [id number]) Posture Evaluation Position Standing Head/C-Spine Posture Forward Head T-Spine Posture Increased Kyphosis Pelvis Posture Anteriorly Tilted Weight Distribution Weight Shifted Left Hip Posture (L) Externally Rotated,(R) Externally Rotated Knee Posture (L) Genu Valgus,(R) Genu Valgus Ankle/Foot Posture (L) Pronated,(R) Pronated Foot Arch (R) Low Arch,(L) No Arch Palpation Assessment Location L foot Palpation Details Mild tenderness of plantar fascia 24 cm around malleoli as comparison R ankle Palpation Details Tenderness and swollen R achilles, 25 cm along entire ankle around malleoli Tenderness proximally and distally but not along heel PT-OP-K Range of Motion Start: 05/16/24 11:17 Freq: Status: Active Protocol: Document 05/16/24 11:18 NM (Rec: 05/16/24 12:16 NM [id number]) Ankle and Foot Goniometric Range of Motion Ankle and Foot Right Dorsiflexion with Knee Flexed 3 Plantarflexion 40 Inversion 25 Eversion 10 Comments inversion and PF painful Left Dorsiflexion with Knee Flexed 3 Plantarflexion 40 Inversion 20 Eversion 5 PT-OP-L Special Tests Start: 05/16/24 11:17 Freq: Status: Active Protocol: Document 05/16/24 11:18 NM (Rec: 05/16/24 12:16 NM [id number]) Special Tests Foot/Ankle Special Tests Michael Test Results + Comments R Dennis Test Results - Comments intact B PT-OP-M Strength Start: 05/16/24 11:17 Freq: Status: Active Protocol: Document 05/16/24 11:18 NM (Rec: 05/16/24 12:16 NM [id number]) Hip Strength Hip Manual Muscle Testing Right Flexion (L2) 4- Good- Extension (S1) 4- Good- Abduction 4- Good- Adduction 4- Good- Left Flexion (L2) 4- Good- Extension (S1) 4- Good- Abduction 4- Good- Adduction 4- Good- Knee Strength Knee Manual Muscle Testing Right Flexion (S2) 4- Good- Extension (L3) 4- Good- Left Flexion (S2) 4- Good- Extension (L3) 4- Good- Ankle/Foot Strength Ankle and Foot Manual Muscle Testing Right Dorsiflexion (L4) 4 Good Inversion 4 Good Eversion (S1) 4 Good Comments Unable to perform a single heel raise Can perform 3 B heel raises, increased pain Left Dorsiflexion (L4) 4 Good Inversion 4 Good Eversion (S1) 4 Good Comments Unable to perform a single heel raise, increased pain with effort Can perform 3 B heel raises, increased pain PT-OP-Q Treatments Start: 05/16/24 11:17 Freq: Status: Active Protocol: Document 05/29/24 10:34 NM (Rec: 05/29/24 11:32 NM [id number]) Therapeutic Exercises Sitting Exercises heel raises Side bilateral Resistance 10# ea leg Reps/Minutes 3x10 with 30 break in between Comments good tolerance for increased resistance Standing Exercises DF mobilization Standing Exercise Name toe scour Side bilateral Equipment Used 2nd step, B rail support for balance Reps/Minutes 2 sets to ea toe Comments cued heel flat; no tendon pain on R foot heel raises Standing Exercise Name Trialed in PT: 1. DL heel raise > eccentric SL lower, 2. Heel raise DL ziyad Side bilateral Reps/Minutes 1. 2x10, 2. 3x30 with 2' break between sets Comments limited ROM B (L more limited than R) Manual Therapy Treatment Consent Patient gave verbal consent for manual Yes treatment Soft Tissue Mobilization L plantar fascia Mobilization Type Rolling Intensity/Depth Superficial Body Position Hooklying Comments Legs elevated on small bolster . Performed for education for pt to perform at home as needed, good tolerance for soft tissue mobilization. Monitored for pain R calf Body Location calf muscle belly, achilles tendon, plantar fascia Mobilization Type Cross-Friction,Rolling, Strumming,Other Intensity/Depth Superficial Body Position Prone Comments Legs elevated on small bolster . Performed gentle distal<> proximal soft tissue mobilization of muscle belly. Gentle cross friction and strumming. Monitored for pain, pt reports less tenderness this session but still along medial/lateral achilles Joint Mobilizations R foot Joint metatarsals 1-5 Direction dorsal-volar Grade III Body Position Hooklying Reps/Duration 1x10 ea Comments To improve toe mobility. Performed along with great toe extension stretch, improved mobility post mobilization. Monitored for pain R talocrural Direction post Grade III Body Position Hooklying Reps/Duration 4x30 Comments For pain reduction then increased mobility. Began with grade II mobilization > III mobilization. Changed hand position for pt comfort, improved tolerance this session. Performed prior to ankle dorsiflexion self mobilization at stairs Self-Care/Home Management Treatment Education Patient Education Home Exercise Program Other Education HEP: standing heel raises progressed to eccentric single leg lowering, seated heel raises progressed to resistance, added ankle dorsiflexion mobilization in standing Educated to d/c RLE DF mobilization if increase in tendon pain PT-OP-T Assessment and Plan Start: 05/16/24 11:17 Freq: Status: Active Protocol: Document 05/29/24 10:34 NM (Rec: 05/29/24 11:32 NM [id number]) Physical Therapy Assessment Goals Five Impairment squats/sit to stands Impairment 5x STS 18.9 sec Short Term Goal (STG) Pt will be able to perform at least 10 bilateral squats without increase in R ankle pain in order to demonstrate improved BLE strength and transfers STG Duration 6 weeks Fur Blowing Machine Attendant Goal (LTG) Pt will be able to perform 5x STS in 12 seconds or less in order to reach age-related norms without increase in R ankle pain in order to demonstrate improved BLE strength and transfers LTG Duration 12 weeks Four Impairment gait Impairment difficulty with ambulation due to pain Short Term Goal (STG) Pt will report that she is able to ambulate with pain <4/ 10 in R ankle at least 10 minutes in order to demonstrate improved symptom management and activity tolerance STG Duration 6 weeks Long-Term Goal (LTG) Pt will report that she is able to ambulate with her dogs without increase in baseline pain in R ankle in order to demonstrate improved symptom management and activity tolerance LTG Duration 12 weeks Three Impairment strength Impairment pain with heel raises Short Term Goal (STG) Pt will be able to perform at least 10 standing B heel raises without increase in baseline pain and without compensations in order to demonstrate improved activity tolerance and symptom management STG Duration 6 weeks Long-Term Goal (LTG) Pt will be able to perform at least 1 standing unilateral heel raise without increase in baseline pain and without compensations in order to demonstrate improved activity tolerance LTG Duration 12 weeks Two Impairment ROM Impairment limited B ankle DF ROM Short Term Goal (STG) Pt will improve B ankle dorsiflexion AROM to at least 5 deg in order to demonstrate improved ROM for gait and transfers, in addition to normalizing gait mechanics STG Duration 8 weeks Fur Blowing Machine Attendant Goal (LTG) Pt will improve B ankle dorsiflexion AROM to at least 8 deg in order to demonstrate improved ROM for gait and transfers, in addition to normalizing gait mechanics LTG Duration 12 weeks One Impairment activity tolerance Impairment unable to stand or ambulate for long periods due to pain Fur Blowing Machine Attendant Goal (LTG) Pt will report that she is able to stand for at least 30 minutes before taking a break due to B foot/ankle pain in order to demonstrate improved activity tolerance for ADLs LTG Duration 12 weeks Assessment Summary Assessment Pt tolerated session well, reporting staying at 4/10 R Achilles pain and reduction in L plantarfascia pain at end of session. Progressed to standing double leg heel raise with eccentric single leg lowering. Pt requires some time to coordinate movement but able to perform within limited range and without increase in baseline pain. Pt also progressed to resisted double leg heel raises in sitting; no increase in immediate tendon pain levels post treatment. PT educated pt to monitor symptoms in R achilles tendon post-exercise (next day) to determine overall tolerance to new exercises, with education to continue with current HEP as opposed to these new exercises if tendon pain increases above 6/10. Due to limitations in B ankle dorsiflexion, continued talocrural joint mobilizations to improve mobility and trialed ankle dorsiflexion self mobilization with toe scour on stairs. Pt would benefit from skilled PT for progressive R Achilles tendon loading in order to improve activity tolerance and symptom management. Physical Therapy Plan Frequency and Duration Frequency of Treatment 1-2x/wk Duration of treatment (weeks) 12 Plan of Care Start Date 05/16/24 Plan of Care End Date 08/10/24 Therapeutic Interventions Therapeutic Interventions Balance Training,Coordination Training,Gait Training,Home Exercise Program,Joint Mobilizations,Manual Therapy, Neuromuscular Re-education, Orthotic/Prosthetic Management ,Patient/Caregiver Education, Self-Care/Home Management, Sensory Integration,Soft Tissue Mobilization,Taping, Therapeutic Activities, Therapeutic Exercises Modalities Cold Pack/Ice Massage,Hot Packs,Ultrasound Other Therapeutic Interventions Rigid tape Next Visit Focus/Plan Next Note Type Treatment Note Next Visit Plan Achilles Tendonitis NO STRETCHING Review and add resistance to seated B heel raise (trial soleus raise in standing w/ AROM vs ankle weight) 3x10, review eccentric single leg heel raise in standing 3x10; progress to heavy eccentrics on leg press Trial side steps w/ or w/o band, STS w/ band Talocrural mobilizations RLE, rigid tape only
--- NOTE | 2024-06-21 12:15 | PT.OTN ---
Current Diagnoses Stiffness of right ankle, not elsewhere classified (06/21/24) Achilles tendinitis, right leg (06/21/24) Other lack of coordination (06/21/24) Weakness (06/21/24) Physical Therapy Treatment Note PT-OP-A Visit Information Start: 05/16/24 11:17 Freq: Status: Active Protocol: Document 06/21/24 10:30 NM (Rec: 06/21/24 11:18 NM [id number]) Out-Patient Physical Therapy Visit Information Visit Information Visit Type Progress Note Visit Note 12 visits Visit Start Time 10:32 Visit Stop Time 11:15 Visit Number 5 Evaluation Information Evaluation Date 05/16/24 Precautions Precautions MS, blood pressure PT-OP-B Current Condition Start: 05/16/24 11:17 Freq: Status: Active Protocol: Document 05/16/24 11:18 NM (Rec: 05/16/24 12:16 NM [id number]) Current Condition History of Current Condition Onset Date several months ago Current Complaints pain, weakness, ROM, ADLs History of Current Condition Pt presents with R achilles tendinitis and plantar fasciiitis on the L foot. She recalls that she had this previously 20 years ago, PT helped, same ankle. She has been to the walk in clinic. She has swelling along the Achilles tendon, less swelling . States improving but still limiting. She has been wearing shoes to assist with the plantar fasciitis. Has been stretching R calf in staggered stance. Reports that her ankles feel like they roll in when walking, can see on her shoes, has been a problem and she is aware. She states that the pain comes and goes. Currently, retired. States that has been occurring since early 2023, unknown SHAWNA; she reports that many years ago ( original injury- felt a pop, after starting a running group and was running/playing soccer going from minimal activity to maximal activity). She has diabetes and peripheral numbness in R foot; also has MS. 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 Functional Limitations- Mobility/Gait walk dog (a couple miles) Functional Limitations- Work/School retired Functional Limitations- Recreation/ gardening, gathering Hobbies PT-OP-C Subjective Start: 05/16/24 11:17 Freq: Status: Active Protocol: Document 06/21/24 10:30 NM (Rec: 06/21/24 11:18 NM [id number]) OP-PT Subjective Patient Comments Patient Comments Reports that her L plantar fasciitis is going away. Demos less antalgic gait today. States that overall her R achilles is getting better, has had a few days when 10 which affected walking and lasted the whole days. However , less frequent. States worse at end of the day. Compliant with HEP, reports difficult but not painful. PT-OP-E Functional Tests Start: 05/16/24 11:17 Freq: Status: Active Protocol: Document 05/16/24 11:18 NM (Rec: 05/16/24 12:16 NM [id number]) Functional Tests Five Times Sit to Stand Test Score 18.9 sec Comments painful in L foot, none in R PT-OP-F Manual Assessment Start: 05/16/24 11:17 Freq: Status: Active Protocol: Document 05/16/24 11:18 NM (Rec: 05/16/24 12:16 NM [id number]) Manual Assessments Soft Tissue Assessment Soft Tissue Mobility Assessment limited B ankle dorsiflexion. Swelling and increased thickness of R achilles tendon , above insertion at heel Joint Mobility Assessment Joint Mobility Assessment Limited R ankle talocrural mobility, B 1st toe extension PT-OP-G Mobility & Gait Start: 05/16/24 11:17 Freq: Status: Active Protocol: Document 05/16/24 11:18 NM (Rec: 05/16/24 12:16 NM [id number]) OP Gait Assessment Gait Gait Assistance Required: Independent Distance (Feet) 150 Assistive Devices Assistive Device None Gait Deviations General Gait Pattern Antalgic,Decreased Stride Length,Decreased Feet Clearance Comments Gait Comments Antalgic gait. She does not put L heel on ground. Demonstrates pronation bilaterally, flat arch on L foot and low arch on R foot. Demonstrates B hip and foot ER with gait, quick toe off bilaterally to decrease stance time. Trunk lean each direction PT-OP-J Posture/Palpation/Skin Start: 05/16/24 11:17 Freq: Status: Active Protocol: Document 05/16/24 11:18 NM (Rec: 05/16/24 12:16 NM [id number]) Posture Evaluation Position Standing Head/C-Spine Posture Forward Head T-Spine Posture Increased Kyphosis Pelvis Posture Anteriorly Tilted Weight Distribution Weight Shifted Left Hip Posture (L) Externally Rotated,(R) Externally Rotated Knee Posture (L) Genu Valgus,(R) Genu Valgus Ankle/Foot Posture (L) Pronated,(R) Pronated Foot Arch (R) Low Arch,(L) No Arch Palpation Assessment Location L foot Palpation Details Mild tenderness of plantar fascia 24 cm around malleoli as comparison R ankle Palpation Details Tenderness and swollen R achilles, 25 cm along entire ankle around malleoli Tenderness proximally and distally but not along heel PT-OP-K Range of Motion Start: 05/16/24 11:17 Freq: Status: Active Protocol: Document 06/21/24 10:30 NM (Rec: 06/21/24 11:18 NM [id number]) Ankle and Foot Goniometric Range of Motion Ankle and Foot Right Dorsiflexion with Knee Flexed 3 Plantarflexion 40 Inversion 25 Eversion 10 Comments inversion and PF painful 06/21/24: 6 deg DF, 50 deg PF, 12 deg eversion, 30 deg inversion (no pain for all) Left Dorsiflexion with Knee Flexed 3 Plantarflexion 40 Inversion 20 Eversion 5 Comments 06/21/24: 5 deg DF PT-OP-L Special Tests Start: 05/16/24 11:17 Freq: Status: Active Protocol: Document 05/16/24 11:18 NM (Rec: 05/16/24 12:16 NM [id number]) Special Tests Foot/Ankle Special Tests Windlass Test Results + Comments R Dennis Test Results - Comments intact B PT-OP-M Strength Start: 05/16/24 11:17 Freq: Status: Active Protocol: Document 06/21/24 10:30 NM (Rec: 06/21/24 11:18 NM [id number]) Ankle/Foot Strength Ankle and Foot Manual Muscle Testing Right Dorsiflexion (L4) 4 Good Plantarflexion (S1) 3 Fair Inversion 4 Good Eversion (S1) 4 Good Comments Unable to perform a single heel raise Can perform 3 B heel raises, increased pain 06/21/24: 4+/5 for all; 10 bilateral w/o pain Left Dorsiflexion (L4) 4 Good Plantarflexion (S1) 3 Fair Inversion 4 Good Eversion (S1) 4 Good Comments Unable to perform a single heel raise, increased pain with effort Can perform 3 B heel raises, increased pain 06/21/24: 10 bilateral w/o pain PT-OP-Q Treatments Start: 05/16/24 11:17 Freq: Status: Active Protocol: Document 06/21/24 10:30 NM (Rec: 06/21/24 11:18 NM [id number]) Therapeutic Exercises Sitting Exercises sit to stand Sitting Exercise Name STS to elevated surface Side bilateral Resistance level 2 band at thighs Reps/Minutes 2x10 Comments pain free heel raises Sitting Exercise Name on leg press Side bilateral Resistance 50# (2 [employer]) Reps/Minutes 2x10 Standing Exercises side steps Side bilateral Resistance level 2 band at thighs Reps/Minutes 2x10 ft ea direction Comments feels in R achilles with stepping if larger steps heel raises Standing Exercise Name 1. DL heel raise> SL lower, 2. single leg heel raise Side bilateral Reps/Minutes 1. 2x10, 2. 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 (LTG) Pt will be able to perform 5x STS in 12 seconds or less in order to reach age-related norms without increase in R ankle pain in order to demonstrate improved BLE strength and transfers LTG Duration 12 weeks Four Impairment gait Impairment difficulty with ambulation due to pain Short Term Goal (STG) Pt will report that she is able to ambulate with pain <4/ 10 in R ankle at least 10 minutes in order to demonstrate improved symptom management and activity tolerance 06/21/24: reports that she can ambulate 10 minutes (walked dog today for first time for 15 minutes) without pain STG Duration 6 weeks MET [facility] Goal (LTG) Pt will report that she is able to ambulate with her dogs without increase in baseline pain in R ankle in order to demonstrate improved symptom management and activity tolerance LTG Duration 12 weeks Three Impairment strength Impairment pain with heel raises Short Term Goal (STG) Pt will be able to perform at least 10 standing B heel raises without increase in baseline pain and without compensations in order to demonstrate improved activity tolerance and symptom management 06/21/24: can do several sets of 10 heel raises (B) with minimal compensation and without increase in pain STG Duration 6 weeks MET [facility] Goal (LTG) Pt will be able to perform at least 1 standing unilateral heel raise without increase in baseline pain and without compensations in order to demonstrate improved activity tolerance LTG Duration 12 weeks Two Impairment ROM Impairment limited B ankle DF ROM Short Term Goal (STG) Pt will improve B ankle dorsiflexion AROM to at least 5 deg in order to demonstrate improved ROM for gait and transfers, in addition to normalizing gait mechanics 06/21/24: 6 deg R ankle DF STG Duration 8 weeks MET [facility] Goal (LTG) Pt will improve B ankle dorsiflexion AROM to at least 8 deg in order to demonstrate improved ROM for gait and transfers, in addition to normalizing gait mechanics LTG Duration 12 weeks One Impairment activity tolerance Impairment unable to stand or ambulate for long periods due to pain 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 No increase in R achilles pain with loading. Continued with eccentric heel raises, which pt able to perform with increased height and control. Still demos strong compensation into heel eversion and ankle pronation with landing; however, able to perform with increased reps and less pain. Trialed loaded heel raises on shuttle recovery at 50#, which pt able to perform with mild symptom increase but within acceptable levels of tendon rehabilitation. She demos improved B ankle dorsiflexion. Trialed sit to stand with band to decrease compensations ; must do to elevated surface due to quad/glute weakness. Good feedback for side steps today with band using smaller steps. Pt would benefit from skilled PT for progressive achilles tendon loading and hip strengthening in order to improve activity tolerance and ability to perform ADLs with fewer limitations. Physical Therapy Plan Frequency and Duration Frequency of Treatment 1-2x/wk Duration of treatment (weeks) 12 Plan of Care Start Date 05/16/24 Plan of Care End Date 08/10/24 Therapeutic Interventions Therapeutic Interventions Balance Training,Coordination Training,Gait Training,Home Exercise Program,Joint Mobilizations,Manual Therapy, Neuromuscular Re-education, Orthotic/Prosthetic Management ,Patient/Caregiver Education, Self-Care/Home Management, Sensory Integration,Soft Tissue Mobilization,Taping, Therapeutic Activities, Therapeutic Exercises Modalities Cold Pack/Ice Massage,Hot Packs,Ultrasound Other Therapeutic Interventions Rigid tape Next Visit Focus/Plan Next Note Type Treatment Note Next Visit Plan Achilles Tendonitis NO STRETCHING Transition to deficit heel raise vs SL heel raise; hip 3 way and side steps - add to HEP. Address STS. Review and add resistance to leg press B heel raise (trial soleus raise in standing w/ AROM vs ankle weight) 3x10, review eccentric single leg heel raise in standing 3x10; progress to heavy eccentrics on leg press Talocrural mobilizations RLE, rigid tape only
--- NOTE | 2024-06-26 13:24 | PT.OTN ---
Current Diagnoses Stiffness of right ankle, not elsewhere classified (06/26/24) Achilles tendinitis, right leg (06/26/24) Other lack of coordination (06/26/24) Weakness (06/26/24) Physical Therapy Treatment Note PT-OP-A Visit Information Start: 05/16/24 11:17 Freq: Status: Active Protocol: Document 06/26/24 09:04 NM (Rec: 06/26/24 09:43 NM [id number]) Out-Patient Physical Therapy Visit Information Visit Information Visit Type Treatment Note Visit Note 12 visits Visit Start Time 09:04 Visit Stop Time 09:44 Visit Number 6 PT-OP-B Current Condition Start: 05/16/24 11:17 Freq: Status: Active Protocol: Document 05/16/24 11:18 NM (Rec: 05/16/24 12:16 NM [id number]) Current Condition History of Current Condition Onset Date several months ago Current Complaints pain, weakness, ROM, ADLs History of Current Condition Pt presents with R achilles tendinitis and plantar fasciiitis on the L foot. She recalls that she had this previously 20 years ago, PT helped, same ankle. She has been to the walk in clinic. She has swelling along the Achilles tendon, less swelling . States improving but still limiting. She has been wearing shoes to assist with the plantar fasciitis. Has been stretching R calf in staggered stance. Reports that her ankles feel like they roll in when walking, can see on her shoes, has been a problem and she is aware. She states that the pain comes and goes. Currently, retired. States that has been occurring since early 2023, unknown SHAWNA; she reports that many years ago ( original injury- felt a pop, after starting a running group and was running/playing soccer going from minimal activity to maximal activity). She has diabetes and peripheral numbness in R foot; also has MS. 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 Functional Limitations- Mobility/Gait walk dog (a couple miles) Functional Limitations- Work/School retired Functional Limitations- Recreation/ gardening, gathering Hobbies PT-OP-C Subjective Start: 05/16/24 11:17 Freq: Status: Active Protocol: Document 06/26/24 09:04 NM (Rec: 06/26/24 09:43 NM [id number]) OP-PT Subjective Patient Comments Patient Comments Pt reports L plantar fasciitis is much improved, almost gone . States that her R achilles is maybe 2/10, just unable go very high on heel raise. She was able to walk her dog multiple times since last session, up to 1 mi. PT-OP-E Functional Tests Start: 05/16/24 11:17 Freq: Status: Active Protocol: Document 05/16/24 11:18 NM (Rec: 05/16/24 12:16 NM [id number]) Functional Tests Five Times Sit to Stand Test Score 18.9 sec Comments painful in L foot, none in R PT-OP-F Manual Assessment Start: 05/16/24 11:17 Freq: Status: Active Protocol: Document 05/16/24 11:18 NM (Rec: 05/16/24 12:16 NM [id number]) Manual Assessments Soft Tissue Assessment Soft Tissue Mobility Assessment limited B ankle dorsiflexion. Swelling and increased thickness of R achilles tendon , above insertion at heel Joint Mobility Assessment Joint Mobility Assessment Limited R ankle talocrural mobility, B 1st toe extension PT-OP-G Mobility & Gait Start: 05/16/24 11:17 Freq: Status: Active Protocol: Document 05/16/24 11:18 NM (Rec: 05/16/24 12:16 NM [id number]) OP Gait Assessment Gait Gait Assistance Required: Independent Distance (Feet) 150 Assistive Devices Assistive Device None Gait Deviations General Gait Pattern Antalgic,Decreased Stride Length,Decreased Feet Clearance Comments Gait Comments Antalgic gait. She does not put L heel on ground. Demonstrates pronation bilaterally, flat arch on L foot and low arch on R foot. Demonstrates B hip and foot ER with gait, quick toe off bilaterally to decrease stance time. Trunk lean each direction PT-OP-J Posture/Palpation/Skin Start: 05/16/24 11:17 Freq: Status: Active Protocol: Document 05/16/24 11:18 NM (Rec: 05/16/24 12:16 NM [id number]) Posture Evaluation Position Standing Head/C-Spine Posture Forward Head T-Spine Posture Increased Kyphosis Pelvis Posture Anteriorly Tilted Weight Distribution Weight Shifted Left Hip Posture (L) Externally Rotated,(R) Externally Rotated Knee Posture (L) Genu Valgus,(R) Genu Valgus Ankle/Foot Posture (L) Pronated,(R) Pronated Foot Arch (R) Low Arch,(L) No Arch Palpation Assessment Location L foot Palpation Details Mild tenderness of plantar fascia 24 cm around malleoli as comparison R ankle Palpation Details Tenderness and swollen R achilles, 25 cm along entire ankle around malleoli Tenderness proximally and distally but not along heel PT-OP-K Range of Motion Start: 05/16/24 11:17 Freq: Status: Active Protocol: Document 06/21/24 10:30 NM (Rec: 06/21/24 11:18 NM [id number]) Ankle and Foot Goniometric Range of Motion Ankle and Foot Right Dorsiflexion with Knee Flexed 3 Plantarflexion 40 Inversion 25 Eversion 10 Comments inversion and PF painful 06/21/24: 6 deg DF, 50 deg PF, 12 deg eversion, 30 deg inversion (no pain for all) Left Dorsiflexion with Knee Flexed 3 Plantarflexion 40 Inversion 20 Eversion 5 Comments 06/21/24: 5 deg DF PT-OP-L Special Tests Start: 05/16/24 11:17 Freq: Status: Active Protocol: Document 05/16/24 11:18 NM (Rec: 05/16/24 12:16 NM [id number]) Special Tests Foot/Ankle Special Tests Windlass Test Results + Comments R Dennis Test Results - Comments intact B PT-OP-M Strength Start: 05/16/24 11:17 Freq: Status: Active Protocol: Document 06/21/24 10:30 NM (Rec: 06/21/24 11:18 NM [id number]) Ankle/Foot Strength Ankle and Foot Manual Muscle Testing Right Dorsiflexion (L4) 4 Good Plantarflexion (S1) 3 Fair Inversion 4 Good Eversion (S1) 4 Good Comments Unable to perform a single heel raise Can perform 3 B heel raises, increased pain 06/21/24: 4+/5 for all; 10 bilateral w/o pain Left Dorsiflexion (L4) 4 Good Plantarflexion (S1) 3 Fair Inversion 4 Good Eversion (S1) 4 Good Comments Unable to perform a single heel raise, increased pain with effort Can perform 3 B heel raises, increased pain 06/21/24: 10 bilateral w/o pain PT-OP-Q Treatments Start: 05/16/24 11:17 Freq: Status: Active Protocol: Document 06/26/24 09:04 NM (Rec: 06/26/24 09:43 NM [id number]) Therapeutic Exercises Sitting Exercises sit to stand Sitting Exercise Name STS to standard chair w/ 1 foam pad Side bilateral Resistance level 2 band at thighs Reps/Minutes 2x10 Comments pain free; improved weight shift, wider AKASH, demos slight post lean Standing Exercises retro stepping Standing Exercise Name HEP Side bilateral Resistance level 2 band at thighs Reps/Minutes 2x15 ft ea direction Comments cued neutral foot position, toe > heel side steps Standing Exercise Name HEP Side bilateral Resistance level 2 band at thighs Equipment Used hand support as needed for balance Reps/Minutes 2x15 ft ea direction Comments cued neutral foot position, smaller steps heel raises Standing Exercise Name 1. deficit heel raise, 2. single leg heel raise Side bilateral Equipment Used 4 step with hand support Reps/Minutes 1. 2x10, 2. 5 ea Comments immed 4/10> 3/10 w/ reps; SL heel raise challenging Manual Therapy Treatment Consent Patient gave verbal consent for manual Yes treatment Soft Tissue Mobilization R calf Body Location calf muscle belly, achilles tendon, peroneals Mobilization Type Cross-Friction,Rolling, Strumming,Other Intensity/Depth Superficial Body Position Prone Comments Less tenderness in calf and achilles today Joint Mobilizations R talocrural Direction post, ant Grade III Body Position Hooklying Reps/Duration 4x30 ea Comments For pain reduction then increased mobility. Began with grade II mobilization > III mobilization for ant glide; grade III post glide for ankle DF. No tenderness this session at achilles. Monitored for pain PT-OP-T Assessment and Plan Start: 05/16/24 11:17 Freq: Status: Active Protocol: Document 06/26/24 09:04 NM (Rec: 06/26/24 09:43 NM [id number]) Physical Therapy Assessment Goals Five Impairment squats/sit to stands Impairment 5x STS 18.9 sec Short Term Goal (STG) Pt will be able to perform at least 10 bilateral squats without increase in R ankle pain in order to demonstrate improved BLE strength and transfers 06/21/24: 10 sit to stands to elevated surface w/o pain 06/26/24: 10 STS/squats to elevated surface w/o pain an dimproved form STG Duration 6 weeks MET Fpc Goal (LTG) Pt will be able to perform 5x STS in 12 seconds or less in order to reach age-related norms without increase in R ankle pain in order to demonstrate improved BLE strength and transfers LTG Duration 12 weeks Four Impairment gait Impairment difficulty with ambulation due to pain Short Term Goal (STG) Pt will report that she is able to ambulate with pain <4/ 10 in R ankle at least 10 minutes in order to demonstrate improved symptom management and activity tolerance 06/21/24: reports that she can ambulate 10 minutes (walked dog today for first time for 15 minutes) without pain STG Duration 6 weeks MET Fpc Goal (LTG) Pt will report that she is able to ambulate with her dogs without increase in baseline pain in R ankle in order to demonstrate improved symptom management and activity tolerance 06/26/24: ambulated 1 mi for several days without increase in R ankle pain LTG Duration 12 weeks Three Impairment strength Impairment pain with heel raises Short Term Goal (STG) Pt will be able to perform at least 10 standing B heel raises without increase in baseline pain and without compensations in order to demonstrate improved activity tolerance and symptom management 06/21/24: can do several sets of 10 heel raises (B) with minimal compensation and without increase in pain STG Duration 6 weeks MET Loom Operator Goal (LTG) Pt will be able to perform at least 1 standing unilateral heel raise without increase in baseline pain and without compensations in order to demonstrate improved activity tolerance LTG Duration 12 weeks Two Impairment ROM Impairment limited B ankle DF ROM Short Term Goal (STG) Pt will improve B ankle dorsiflexion AROM to at least 5 deg in order to demonstrate improved ROM for gait and transfers, in addition to normalizing gait mechanics 06/21/24: 6 deg R ankle DF STG Duration 8 weeks MET Fpc Goal (LTG) Pt will improve B ankle dorsiflexion AROM to at least 8 deg in order to demonstrate improved ROM for gait and transfers, in addition to normalizing gait mechanics LTG Duration 12 weeks One Impairment activity tolerance Impairment unable to stand or ambulate for long periods due to pain Loom Operator Goal (LTG) Pt will report that she is able to stand for at least 30 minutes before taking a break due to B foot/ankle pain in order to demonstrate improved activity tolerance for ADLs LTG Duration 12 weeks Assessment Summary Assessment Pt tolerated session well. Trialed deficit bilateral heel raises today. Pt has increased stretch but stays at 4/10 immediately following, which is within acceptable tendon loading pain range. Throughout session, pt continue to have less R achilles tendon discomfort. Pt would continue to benefit from glute/quad strengthening as she fatigues quickly. Demos better STS form with band and better control, but still needs higher surface due to quad weakness. Pt has good tolerance for retro stepping and lateral stepping with resistance. She is also able to do 5 single leg heel raises today with increased time and small range. Pt would benefit from skilled PT for progressive tendon loading of R achilles and for progressive BLE strength in order to improve activity tolerance and symptom management. Physical Therapy Plan Frequency and Duration Frequency of Treatment 1-2x/wk Duration of treatment (weeks) 12 Plan of Care Start Date 05/16/24 Plan of Care End Date 08/10/24 Therapeutic Interventions Therapeutic Interventions Balance Training,Coordination Training,Gait Training,Home Exercise Program,Joint Mobilizations,Manual Therapy, Neuromuscular Re-education, Orthotic/Prosthetic Management ,Patient/Caregiver Education, Self-Care/Home Management, Sensory Integration,Soft Tissue Mobilization,Taping, Therapeutic Activities, Therapeutic Exercises Modalities Cold Pack/Ice Massage,Hot Packs,Ultrasound Other Therapeutic Interventions Rigid tape Next Visit Focus/Plan Next Note Type Treatment Note Next Visit Plan Achilles Tendonitis NO STRETCHING balance (foam, SLS), deficit heel raise 6 or w/ soleus vs SL heel raise; hip 3 way and side steps - add to HEP. Address STS. Review and add resistance to leg press B heel raise (trial soleus raise in standing w/ AROM vs ankle weight) 3x10, review eccentric single leg heel raise in standing 3x10; progress to heavy eccentrics on leg press Talocrural mobilizations RLE, rigid tape only
--- NOTE | 2024-07-03 09:55 | PT.OTN ---
Current Diagnoses Stiffness of right ankle, not elsewhere classified (07/03/24) Achilles tendinitis, right leg (07/03/24) Other lack of coordination (07/03/24) Weakness (07/03/24) Physical Therapy Treatment Note PT-OP-A Visit Information Start: 05/16/24 11:17 Freq: Status: Active Protocol: Document 07/03/24 09:08 NM (Rec: 07/03/24 09:55 NM [id number]) Out-Patient Physical Therapy Visit Information Visit Information Visit Type Treatment Note Visit Note 12 visits Visit Start Time 09:06 Visit Stop Time 09:46 Visit Number 7 PT-OP-B Current Condition Start: 05/16/24 11:17 Freq: Status: Active Protocol: Document 05/16/24 11:18 NM (Rec: 05/16/24 12:16 NM [id number]) Current Condition History of Current Condition Onset Date several months ago Current Complaints pain, weakness, ROM, ADLs History of Current Condition Pt presents with R achilles tendinitis and plantar fasciiitis on the L foot. She recalls that she had this previously 20 years ago, PT helped, same ankle. She has been to the walk in clinic. She has swelling along the Achilles tendon, less swelling . States improving but still limiting. She has been wearing shoes to assist with the plantar fasciitis. Has been stretching R calf in staggered stance. Reports that her ankles feel like they roll in when walking, can see on her shoes, has been a problem and she is aware. She states that the pain comes and goes. Currently, retired. States that has been occurring since early 2023, unknown SHAW[place]; she reports that many years ago ( original injury- felt a pop, after starting a running group and was running/playing soccer going from minimal activity to maximal activity). She has diabetes and peripheral numbness in R foot; also has MS. 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 Functional Limitations- Mobility/Gait walk dog (a couple miles) Functional Limitations- Work/School retired Functional Limitations- Recreation/ gardening, gathering Hobbies PT-OP-C Subjective Start: 05/16/24 11:17 Freq: Status: Active Protocol: Document 07/03/24 09:08 NM (Rec: 07/03/24 09:55 NM [id number]) OP-PT Subjective Patient Comments Patient Comments Pt reports 2/10 R achilles pain. She reports that she can walk for a mile before needing to stop due to any discomfort. She is not going all out, but can stand until 12. PT-OP-E Functional Tests Start: 05/16/24 11:17 Freq: Status: Active Protocol: Document 05/16/24 11:18 NM (Rec: 05/16/24 12:16 NM [id number]) Functional Tests Five Times Sit to Stand Test Score 18.9 sec Comments painful in L foot, none in R PT-OP-F Manual Assessment Start: 05/16/24 11:17 Freq: Status: Active Protocol: Document 05/16/24 11:18 NM (Rec: 05/16/24 12:16 NM [id number]) Manual Assessments Soft Tissue Assessment Soft Tissue Mobility Assessment limited B ankle dorsiflexion. Swelling and increased thickness of R achilles tendon , above insertion at heel Joint Mobility Assessment Joint Mobility Assessment Limited R ankle talocrural mobility, B 1st toe extension PT-OP-G Mobility & Gait Start: 05/16/24 11:17 Freq: Status: Active Protocol: Document 05/16/24 11:18 NM (Rec: 05/16/24 12:16 NM [id number]) OP Gait Assessment Gait Gait Assistance Required: Independent Distance (Feet) 150 Assistive Devices Assistive Device None Gait Deviations General Gait Pattern Antalgic,Decreased Stride Length,Decreased Feet Clearance Comments Gait Comments Antalgic gait. She does not put L heel on ground. Demonstrates pronation bilaterally, flat arch on L foot and low arch on R foot. Demonstrates B hip and foot ER with gait, quick toe off bilaterally to decrease stance time. Trunk lean each direction PT-OP-J Posture/Palpation/Skin Start: 05/16/24 11:17 Freq: Status: Active Protocol: Document 05/16/24 11:18 NM (Rec: 05/16/24 12:16 NM [id number]) Posture Evaluation Position Standing Head/C-Spine Posture Forward Head T-Spine Posture Increased Kyphosis Pelvis Posture Anteriorly Tilted Weight Distribution Weight Shifted Left Hip Posture (L) Externally Rotated,(R) Externally Rotated Knee Posture (L) Genu Valgus,(R) Genu Valgus Ankle/Foot Posture (L) Pronated,(R) Pronated Foot Arch (R) Low Arch,(L) No Arch Palpation Assessment Location L foot Palpation Details Mild tenderness of plantar fascia 24 cm around malleoli as comparison R ankle Palpation Details Tenderness and swollen R achilles, 25 cm along entire ankle around malleoli Tenderness proximally and distally but not along heel PT-OP-K Range of Motion Start: 05/16/24 11:17 Freq: Status: Active Protocol: Document 06/21/24 10:30 NM (Rec: 06/21/24 11:18 NM [id number]) Ankle and Foot Goniometric Range of Motion Ankle and Foot Right Dorsiflexion with Knee Flexed 3 Plantarflexion 40 Inversion 25 Eversion 10 Comments inversion and PF painful 06/21/24: 6 deg DF, 50 deg PF, 12 deg eversion, 30 deg inversion (no pain for all) Left Dorsiflexion with Knee Flexed 3 Plantarflexion 40 Inversion 20 Eversion 5 Comments 06/21/24: 5 deg DF PT-OP-L Special Tests Start: 05/16/24 11:17 Freq: Status: Active Protocol: Document 05/16/24 11:18 NM (Rec: 05/16/24 12:16 NM [id number]) Special Tests Foot/Ankle Special Tests Windlass Test Results + Comments R Dennis Test Results - Comments intact B PT-OP-M Strength Start: 05/16/24 11:17 Freq: Status: Active Protocol: Document 06/21/24 10:30 NM (Rec: 06/21/24 11:18 NM [id number]) Ankle/Foot Strength Ankle and Foot Manual Muscle Testing Right Dorsiflexion (L4) 4 Good Plantarflexion (S1) 3 Fair Inversion 4 Good Eversion (S1) 4 Good Comments Unable to perform a single heel raise Can perform 3 B heel raises, increased pain 06/21/24: 4+/5 for all; 10 bilateral w/o pain Left Dorsiflexion (L4) 4 Good Plantarflexion (S1) 3 Fair Inversion 4 Good Eversion (S1) 4 Good Comments Unable to perform a single heel raise, increased pain with effort Can perform 3 B heel raises, increased pain 06/21/24: 10 bilateral w/o pain PT-OP-Q Treatments Start: 05/16/24 11:17 Freq: Status: Active Protocol: Document 07/03/24 09:08 NM (Rec: 07/03/24 09:55 NM [id number]) Gym Equipment Shuttle Recovery unilateral squat Details cued control, full TKE w/o locking, limit valgus Resistance 63# Reps/Time 2x15 -performed bilaterally Therapeutic Exercises Standing Exercises retro stepping Standing Exercise Name HEP review Side bilateral Resistance level 2 band below knees Reps/Minutes 2x15 ft Comments improved neutral foot position , prn cues side steps Standing Exercise Name HEP review Side bilateral Resistance level 2 band at thighs Equipment Used hand support as needed for balance Reps/Minutes 2x15 ft ea direction Comments cued neutral foot position, smaller steps heel raises Standing Exercise Name 1. deficit heel raise (HEP), 2 . single heel raise (HEP) Side bilateral Equipment Used 6 Reps/Minutes 1. 3x10, 2. 2x7 on R, 2x10 on L Comments limited ROM w/ SL raise but no pain Other Exercises self soft tissue mobilization Other Exercise Name calf: ankle pumps Side right Equipment Used long sitting Reps/Minutes 60 Comments Mobilization with movement, feels R lateral tender but denies pain Neuro Re-Education Treatment Balance Activities single leg stance Details HEP Comments stable surface, 2x30 ea with 1 finger support PT-OP-T Assessment and Plan Start: 05/16/24 11:17 Freq: Status: Active Protocol: Document 07/03/24 09:08 NM (Rec: 07/03/24 09:55 NM [id number]) Physical Therapy Assessment Goals Five Impairment squats/sit to stands Impairment 5x STS 18.9 sec Short Term Goal (STG) Pt will be able to perform at least 10 bilateral squats without increase in R ankle pain in order to demonstrate improved BLE strength and transfers 06/21/24: 10 sit to stands to elevated surface w/o pain 06/26/24: 10 STS/squats to elevated surface w/o pain an dimproved form STG Duration 6 weeks MET Flexographic Press Helper Goal (LTG) Pt will be able to perform 5x STS in 12 seconds or less in order to reach age-related norms without increase in R ankle pain in order to demonstrate improved BLE strength and transfers LTG Duration 12 weeks Four Impairment gait Impairment difficulty with ambulation due to pain Short Term Goal (STG) Pt will report that she is able to ambulate with pain <4/ 10 in R ankle at least 10 minutes in order to demonstrate improved symptom management and activity tolerance 06/21/24: reports that she can ambulate 10 minutes (walked dog today for first time for 15 minutes) without pain STG Duration 6 weeks MET Flexographic Press Helper Goal (LTG) Pt will report that she is able to ambulate with her dogs without increase in baseline pain in R ankle in order to demonstrate improved symptom management and activity tolerance 06/26/24: ambulated 1 mi for several days without increase in R ankle pain 07/03/24: pt reports that she is able to ambulate at least 1 mi consistently without an increase in ankle pain or needing a break LTG Duration 12 weeks Three Impairment strength Impairment pain with heel raises Short Term Goal (STG) Pt will be able to perform at least 10 standing B heel raises without increase in baseline pain and without compensations in order to demonstrate improved activity tolerance and symptom management 06/21/24: can do several sets of 10 heel raises (B) with minimal compensation and without increase in pain STG Duration 6 weeks MET Flexographic Press Helper Goal (LTG) Pt will be able to perform at least 1 standing unilateral heel raise without increase in baseline pain and without compensations in order to demonstrate improved activity tolerance 07/03/24:2 sets 7 single leg heel raises on R, 10 on L; no increase in achilles pain LTG Duration 12 weeks PROGRESSING Two Impairment ROM Impairment limited B ankle DF ROM Short Term Goal (STG) Pt will improve B ankle dorsiflexion AROM to at least 5 deg in order to demonstrate improved ROM for gait and transfers, in addition to normalizing gait mechanics 06/21/24: 6 deg R ankle DF STG Duration 8 weeks MET Flexographic Press Helper Goal (LTG) Pt will improve B ankle dorsiflexion AROM to at least 8 deg in order to demonstrate improved ROM for gait and transfers, in addition to normalizing gait mechanics LTG Duration 12 weeks One Impairment activity tolerance Impairment unable to stand or ambulate for long periods due to pain Flexographic Press Helper Goal (LTG) Pt will report that she is able to stand for at least 30 minutes before taking a break due to B foot/ankle pain in order to demonstrate improved activity tolerance for ADLs LTG Duration 12 weeks Assessment Summary Assessment Pt tolerated session well. She is able to perform 7 single leg heel raises on R foot without pain but with limited ROM. Pt continues to have limited ROM with B heel raises . Pt able to progress to 3rd set of B deficit heel raises without any increase in pain. Pt continues to remain within acceptable tendon loading pain scale during activity, progressing well toward goals. Trialed unilateral squat on leg press, able to perform without any achilles pain; however, requires cues for TKE without locking and for control. Performed to improve glute/quad strength to promote proximal stability. Pt challenged by single leg stance with 1 finger support; added to HEP. Pt reports 3/10 R achilles ache (denies pain) at end of session, still within acceptable range. Pt would benefit from skilled PT for progressive R achilles tendon loading in order to improve activity tolerance, ability to ambulate, and perform ADLs without limitation. Physical Therapy Plan Frequency and Duration Frequency of Treatment 1-2x/wk Duration of treatment (weeks) 12 Plan of Care Start Date 05/16/24 Plan of Care End Date 08/10/24 Therapeutic Interventions Therapeutic Interventions Balance Training,Coordination Training,Gait Training,Home Exercise Program,Joint Mobilizations,Manual Therapy, Neuromuscular Re-education, Orthotic/Prosthetic Management ,Patient/Caregiver Education, Self-Care/Home Management, Sensory Integration,Soft Tissue Mobilization,Taping, Therapeutic Activities, Therapeutic Exercises Modalities Cold Pack/Ice Massage,Hot Packs,Ultrasound Other Therapeutic Interventions Rigid tape Next Visit Focus/Plan Next Note Type Treatment Note Next Visit Plan Achilles Tendonitis Stretching ok to tolerance if pain free Current HEP: SL heel raise, deficit heel raise stairs, side steps, fwd/retro amb w/ band, SLS w/ support balance (foam, SLS), deficit heel raise 6 w/ ankle weights 5#+ and single leg heel raise w/o resistance; STS , uni squat on leg press vs step up 4-6 step, reverse lunge, SL stance and balance/ proprioception Talocrural mobilizations RLE, rigid tape only
--- NOTE | 2024-07-20 09:48 | PT.OTN ---
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 She recalls that she had this previously 20 years ago, PT helped, same ankle. She has been to the walk in clinic. She has swelling along the Achilles tendon, less swelling . States improving but still limiting. She has been wearing shoes to assist with the plantar fasciitis. Has been stretching R calf in staggered stance. Reports that her ankles feel like they roll in when walking, can see on her shoes, has been a problem and she is aware. She states that the pain comes and goes. Currently, retired. States that has been occurring since early 2023, unknown SHAWNA; she reports that many years ago ( original injury- felt a pop, after starting a running group and was running/playing soccer going from minimal activity to maximal activity). She has diabetes and peripheral numbness in R foot; also has MS. 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 Functional Limitations- Mobility/Gait walk dog (a couple miles) Functional Limitations- Work/School retired Functional Limitations- Recreation/ gardening, gathering Hobbies PT-OP-C Subjective Start: 05/16/24 11:17 Freq: Status: Active Protocol: Document 07/20/24 09:03 SP (Rec: 07/20/24 10:15 SP [id number]) OP-PT Subjective Patient Comments Patient Comments Pt reports 3-10 R achilles pain at arrival. She stated was out of town and hard to do exercises since last tx so more off balance and hoping to get manual STMs and go over only tolerant HEP. PT-OP-E Functional Tests Start: 05/16/24 11:17 Freq: Status: Active Protocol: Document 05/16/24 11:18 NM (Rec: 05/16/24 12:16 NM [id number]) Functional Tests Five Times Sit to Stand Test Score 18.9 sec Comments painful in L foot, none in R PT-OP-F Manual Assessment Start: 05/16/24 11:17 Freq: Status: Active Protocol: Document 05/16/24 11:18 NM (Rec: 05/16/24 12:16 NM [id number]) Manual Assessments Soft Tissue Assessment Soft Tissue Mobility Assessment limited B ankle dorsiflexion. Swelling and increased thickness of R achilles tendon , above insertion at heel Joint Mobility Assessment Joint Mobility Assessment Limited R ankle talocrural mobility, B 1st toe extension PT-OP-G Mobility & Gait Start: 05/16/24 11:17 Freq: Status: Active Protocol: Document 05/16/24 11:18 NM (Rec: 05/16/24 12:16 NM [id number]) OP Gait Assessment Gait Gait Assistance Required: Independent Distance (Feet) 150 Assistive Devices Assistive Device None Gait Deviations General Gait Pattern Antalgic,Decreased Stride Length,Decreased Feet Clearance Comments Gait Comments Antalgic gait. She does not put L heel on ground. Demonstrates pronation bilaterally, flat arch on L foot and low arch on R foot. Demonstrates B hip and foot ER with gait, quick toe off bilaterally to decrease stance time. Trunk lean each direction PT-OP-J Posture/Palpation/Skin Start: 05/16/24 11:17 Freq: Status: Active Protocol: Document 05/16/24 11:18 NM (Rec: 05/16/24 12:16 NM [id number]) Posture Evaluation Position Standing Head/C-Spine Posture Forward Head T-Spine Posture Increased Kyphosis Pelvis Posture Anteriorly Tilted Weight Distribution Weight Shifted Left Hip Posture (L) Externally Rotated,(R) Externally Rotated Knee Posture (L) Genu Valgus,(R) Genu Valgus Ankle/Foot Posture (L) Pronated,(R) Pronated Foot Arch (R) Low Arch,(L) No Arch Palpation Assessment Location L foot Palpation Details Mild tenderness of plantar fascia 24 cm around malleoli as comparison R ankle Palpation Details Tenderness and swollen R achilles, 25 cm along entire ankle around malleoli Tenderness proximally and distally but not along heel PT-OP-K Range of Motion Start: 05/16/24 11:17 Freq: Status: Active Protocol: Document 06/21/24 10:30 NM (Rec: 06/21/24 11:18 NM [id number]) Ankle and Foot Goniometric Range of Motion Ankle and Foot Right Dorsiflexion with Knee Flexed 3 Plantarflexion 40 Inversion 25 Eversion 10 Comments inversion and PF painful 06/21/24: 6 deg DF, 50 deg PF, 12 deg eversion, 30 deg inversion (no pain for all) Left Dorsiflexion with Knee Flexed 3 Plantarflexion 40 Inversion 20 Eversion 5 Comments 06/21/24: 5 deg DF PT-OP-L Special Tests Start: 05/16/24 11:17 Freq: Status: Active Protocol: Document 05/16/24 11:18 NM (Rec: 05/16/24 12:16 NM [id number]) Special Tests Foot/Ankle Special Tests Windlass Test Results + Comments R Dennis Test Results - Comments intact B PT-OP-M Strength Start: 05/16/24 11:17 Freq: Status: Active Protocol: Document 06/21/24 10:30 NM (Rec: 06/21/24 11:18 NM [id number]) Ankle/Foot Strength Ankle and Foot Manual Muscle Testing Right Dorsiflexion (L4) 4 Good Plantarflexion (S1) 3 Fair Inversion 4 Good Eversion (S1) 4 Good Comments Unable to perform a single heel raise Can perform 3 B heel raises, increased pain 06/21/24: 4+/5 for all; 10 bilateral w/o pain Left Dorsiflexion (L4) 4 Good Plantarflexion (S1) 3 Fair Inversion 4 Good Eversion (S1) 4 Good Comments Unable to perform a single heel raise, increased pain with effort Can perform 3 B heel raises, increased pain 06/21/24: 10 bilateral w/o pain PT-OP-Q Treatments Start: 05/16/24 11:17 Freq: Status: Active Protocol: Document 07/20/24 09:03 SP (Rec: 07/20/24 10:15 SP [id number]) Therapeutic Exercises Sitting Exercises ankle plantarflexion Sitting Exercise Name active PF then eccentric DF hold stretch Side right Resistance level 2 band- perform in bed pre get up Equipment Used knee extended and heel on ground Reps/Minutes 3 SH stretch, 5 reps (goal work up to 10) Comments better ROM; edu to perform as 3rd set if unable in standing Standing Exercises eccentric calf raise Standing Exercise Name self HEP- deficit heel raise Resistance rail support Equipment Used 6 step Reps/Minutes x10 Comments pnfree range- good calf stretch retro stepping Standing Exercise Name HEP review Side bilateral Resistance level 2 band below knees Reps/Minutes 2x15 ft Comments improved neutral foot position , prn cues DF mobilization Standing Exercise Name demonstrated for HEP /c HO Side right Equipment Used 2nd foot onstep, rail support Reps/Minutes x10 Comments not performed but reports I think that can help alot, will try home. heel raises Standing Exercise Name 1. DL heel raise (HEP), 2. DL lift, SL eccentric R heel lower(HEP) Side bilateral Equipment Used floor, moderate UE support on rail Reps/Minutes 1x10, 2. 2x7 on R, 2x10 on L Comments limited ROM w/ SL raise but no pain, tiring challenge L Other Exercises self soft tissue mobilization Other Exercise Name calf: ankle pumps post manual Side right Equipment Used sitting chair/c Tb #2, chair R LE over L manual MWM achilles /c AP Reps/Minutes 60 Comments Mobilization with movement, denies pain Manual Therapy Treatment Soft Tissue Mobilization R calf Body Location calf muscle belly prone rolling pin, achilles tendon & peroneals Mobilization Type Cross-Friction,Instrument Assisted,Rolling,Strumming, Sustained Pressure,Other Intensity/Depth Superficial Body Position Prone Comments -rolling pin calf prone (ed self seated) -supine MWM grasp achilles /c AP manual and ed sitting self appication. Less tenderness in calf and achilles today Joint Mobilizations R foot Joint metatarsals 1-5 gross rotation & AP Direction dorsal-volar Grade II Body Position Hooklying Reps/Duration 1x10 ea Comments To improve toe mobility. Performed along with great toe extension stretch, improved mobility post mobilization. Monitored for pain R talocrural Direction post, ant Grade III Body Position Supine Reps/Duration 4x30 ea Comments PA prone, AP supine Neuro Re-Education Treatment Balance Activities single leg stance Details HEP Surface Lamont Comments stable surface, 2x20 ea with 1 finger support Self-Care/Home Management Treatment Education Patient Education Home Exercise Program,Pain Management Other Education Much time discuss anatomy and sleeping ankle positioning can cause calf shortened positioning, ed self STMs and MWM using TB for improve mobility before gets up to allow neutral ankle and tension&pain reduction PT-OP-T Assessment and Plan Start: 05/16/24 11:17 Freq: Status: Active Protocol: Document 07/20/24 09:03 SP (Rec: 07/20/24 10:15 SP [id number]) Physical Therapy Assessment Goals Five Impairment squats/sit to stands Impairment 5x STS 18.9 sec Short Term Goal (STG) Pt will be able to perform at least 10 bilateral squats without increase in R ankle pain in order to demonstrate improved BLE strength and transfers 06/21/24: 10 sit to stands to elevated surface w/o pain 06/26/24: 10 STS/squats to elevated surface w/o pain an dimproved form STG Duration 6 weeks MET Sap Fico Architect Goal (LTG) Pt will be able to perform 5x STS in 12 seconds or less in order to reach age-related norms without increase in R ankle pain in order to demonstrate improved BLE strength and transfers LTG Duration 12 weeks Four Impairment gait Impairment difficulty with ambulation due to pain Short Term Goal (STG) Pt will report that she is able to ambulate with pain <4/ 10 in R ankle at least 10 minutes in order to demonstrate improved symptom management and activity tolerance 06/21/24: reports that she can ambulate 10 minutes (walked dog today for first time for 15 minutes) without pain STG Duration 6 weeks MET Half-Way Goal (LTG) Pt will report that she is able to ambulate with her dogs without increase in baseline pain in R ankle in order to demonstrate improved symptom management and activity tolerance 06/26/24: ambulated 1 mi for several days without increase in R ankle pain 07/03/24: pt reports that she is able to ambulate at least 1 mi consistently without an increase in ankle pain or needing a break LTG Duration 12 weeks Three Impairment strength Impairment pain with heel raises Short Term Goal (STG) Pt will be able to perform at least 10 standing B heel raises without increase in baseline pain and without compensations in order to demonstrate improved activity tolerance and symptom management 06/21/24: can do several sets of 10 heel raises (B) with minimal compensation and without increase in pain STG Duration 6 weeks MET Half-Way Goal (LTG) Pt will be able to perform at least 1 standing unilateral heel raise without increase in baseline pain and without compensations in order to demonstrate improved activity tolerance 07/03/24:2 sets 7 single leg heel raises on R, 10 on L; no increase in achilles pain LTG Duration 12 weeks PROGRESSING Two Impairment ROM Impairment limited B ankle DF ROM Short Term Goal (STG) Pt will improve B ankle dorsiflexion AROM to at least 5 deg in order to demonstrate improved ROM for gait and transfers, in addition to normalizing gait mechanics 06/21/24: 6 deg R ankle DF STG Duration 8 weeks MET Sap Fico Architect Goal (LTG) Pt will improve B ankle dorsiflexion AROM to at least 8 deg in order to demonstrate improved ROM for gait and transfers, in addition to normalizing gait mechanics LTG Duration 12 weeks One Impairment activity tolerance Impairment unable to stand or ambulate for long periods due to pain Half-Way Goal (LTG) Pt will report that she is able to stand for at least 30 minutes before taking a break due to B foot/ankle pain in order to demonstrate improved activity tolerance for ADLs LTG Duration 12 weeks Assessment Summary Assessment Pt responds well to manual and much education of importance of ankle ROM and MWM /c strap for achilles mobility before get out of bed to allow decreased achilles and plantar fascia tightness once in standing with good response today after manual. Improved painfree in achilles with review MWM TB and HEP eccentric RLE and body weight DL off step. Pt unable to perform SL heel raise, ok light discomfort SL deficit/ eccentric heel raise with moderate 1 finger on rail support. Decreased SLS time supported 2 fingers moderate heavy on rail. Cued forward/ backward walking allow normaizing ankle mobility end tx. Pt reports less plantar fascia tension and more ankle movement than when arrived. Physical Therapy Plan Frequency and Duration Frequency of Treatment 1-2x/wk Duration of treatment (weeks) 12 Plan of Care Start Date 05/16/24 Plan of Care End Date 08/10/24 Therapeutic Interventions Therapeutic Interventions Balance Training,Coordination Training,Gait Training,Home Exercise Program,Joint Mobilizations,Manual Therapy, Neuromuscular Re-education, Orthotic/Prosthetic Management ,Patient/Caregiver Education, Self-Care/Home Management, Sensory Integration,Soft Tissue Mobilization,Taping, Therapeutic Activities, Therapeutic Exercises Modalities Cold Pack/Ice Massage,Hot Packs,Ultrasound Other Therapeutic Interventions Rigid tape Next Visit Focus/Plan Next Note Type Treatment Note Next Visit Plan Achilles Tendonitis Recheck: MWM TB #3 achilles, rolling pin if ok to calf. POC: Stretching ok to tolerance if pain free Current HEP: SL heel raise, deficit heel raise stairs, side steps, fwd/retro amb w/ band, SLS w/ support balance (foam, SLS), deficit heel raise 6 w/ ankle weights 5#+ and single leg heel raise w/o resistance; STS , uni squat on leg press vs step up 4-6 step, reverse lunge, SL stance and balance/ proprioception Talocrural mobilizations RLE, rigid tape only
--- NOTE | 2024-07-24 09:48 | PT.OTN ---
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 She recalls that she had this previously 20 years ago, PT helped, same ankle. She has been to the walk in clinic. She has swelling along the Achilles tendon, less swelling . States improving but still limiting. She has been wearing shoes to assist with the plantar fasciitis. Has been stretching R calf in staggered stance. Reports that her ankles feel like they roll in when walking, can see on her shoes, has been a problem and she is aware. She states that the pain comes and goes. Currently, retired. States that has been occurring since early 2023, unknown SHAWNA; she reports that many years ago ( original injury- felt a pop, after starting a running group and was running/playing soccer going from minimal activity to maximal activity). She has diabetes and peripheral numbness in R foot; also has MS. 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 Functional Limitations- Mobility/Gait walk dog (a couple miles) Functional Limitations- Work/School retired Functional Limitations- Recreation/ gardening, gathering Hobbies PT-OP-C Subjective Start: 05/16/24 11:17 Freq: Status: Active Protocol: Document 07/24/24 08:59 NM (Rec: 07/24/24 09:47 NM [id number]) OP-PT Subjective Patient Comments Patient Comments Pt reports consistently 2-3/10 , worst at end of day in Achilles. However, states that HEP going well; states that finding time is the hardest part. PT-OP-E Functional Tests Start: 05/16/24 11:17 Freq: Status: Active Protocol: Document 05/16/24 11:18 NM (Rec: 05/16/24 12:16 NM [id number]) Functional Tests Five Times Sit to Stand Test Score 18.9 sec Comments painful in L foot, none in R PT-OP-F Manual Assessment Start: 05/16/24 11:17 Freq: Status: Active Protocol: Document 05/16/24 11:18 NM (Rec: 05/16/24 12:16 NM [id number]) Manual Assessments Soft Tissue Assessment Soft Tissue Mobility Assessment limited B ankle dorsiflexion. Swelling and increased thickness of R achilles tendon , above insertion at heel Joint Mobility Assessment Joint Mobility Assessment Limited R ankle talocrural mobility, B 1st toe extension PT-OP-G Mobility & Gait Start: 05/16/24 11:17 Freq: Status: Active Protocol: Document 05/16/24 11:18 NM (Rec: 05/16/24 12:16 NM [id number]) OP Gait Assessment Gait Gait Assistance Required: Independent Distance (Feet) 150 Assistive Devices Assistive Device None Gait Deviations General Gait Pattern Antalgic,Decreased Stride Length,Decreased Feet Clearance Comments Gait Comments Antalgic gait. She does not put L heel on ground. Demonstrates pronation bilaterally, flat arch on L foot and low arch on R foot. Demonstrates B hip and foot ER with gait, quick toe off bilaterally to decrease stance time. Trunk lean each direction PT-OP-J Posture/Palpation/Skin Start: 05/16/24 11:17 Freq: Status: Active Protocol: Document 05/16/24 11:18 NM (Rec: 05/16/24 12:16 NM [id number]) Posture Evaluation Position Standing Head/C-Spine Posture Forward Head T-Spine Posture Increased Kyphosis Pelvis Posture Anteriorly Tilted Weight Distribution Weight Shifted Left Hip Posture (L) Externally Rotated,(R) Externally Rotated Knee Posture (L) Genu Valgus,(R) Genu Valgus Ankle/Foot Posture (L) Pronated,(R) Pronated Foot Arch (R) Low Arch,(L) No Arch Palpation Assessment Location L foot Palpation Details Mild tenderness of plantar fascia 24 cm around malleoli as comparison R ankle Palpation Details Tenderness and swollen R achilles, 25 cm along entire ankle around malleoli Tenderness proximally and distally but not along heel PT-OP-K Range of Motion Start: 05/16/24 11:17 Freq: Status: Active Protocol: Document 07/24/24 08:59 NM (Rec: 07/24/24 09:47 NM [id number]) Ankle and Foot Goniometric Range of Motion Ankle and Foot Right Dorsiflexion with Knee Flexed 3 Plantarflexion 40 Inversion 25 Eversion 10 Comments inversion and PF painful 06/21/24: 6 deg DF, 50 deg PF, 12 deg eversion, 30 deg inversion (no pain for all) Left Dorsiflexion with Knee Flexed 3 Plantarflexion 40 Inversion 20 Eversion 5 Comments 06/21/24: 5 deg DF PT-OP-L Special Tests Start: 05/16/24 11:17 Freq: Status: Active Protocol: Document 05/16/24 11:18 NM (Rec: 05/16/24 12:16 NM [id number]) Special Tests Foot/Ankle Special Tests Windlass Test Results + Comments R Dennis Test Results - Comments intact B PT-OP-M Strength Start: 05/16/24 11:17 Freq: Status: Active Protocol: Document 07/24/24 08:59 NM (Rec: 07/24/24 09:47 NM [id number]) Ankle/Foot Strength Ankle and Foot Manual Muscle Testing Right Dorsiflexion (L4) 4 Good Plantarflexion (S1) 3 Fair Inversion 4 Good Eversion (S1) 4 Good Comments Unable to perform a single heel raise Can perform 3 B heel raises, increased pain 06/21/24: 4+/5 for all; 10 bilateral w/o pain Left Dorsiflexion (L4) 4 Good Plantarflexion (S1) 3 Fair Inversion 4 Good Eversion (S1) 4 Good Comments Unable to perform a single heel raise, increased pain with effort Can perform 3 B heel raises, increased pain 06/21/24: 10 bilateral w/o pain PT-OP-Q Treatments Start: 05/16/24 11:17 Freq: Status: Active Protocol: Document 07/24/24 08:59 NM (Rec: 07/24/24 09:47 NM [id number]) Therapeutic Exercises Standing Exercises step up Standing Exercise Name forward step up/back Side bilateral Equipment Used 6 step, 1 finger support Reps/Minutes 20 Comments cued for eccentric control, less assist from trailing leg eccentric calf raise Standing Exercise Name deficit heel raise on shuttle recovery press Side bilateral Resistance 50# (2 [employer]) Reps/Minutes 2x10 Comments cueing for form initially, w/i heel raises Standing Exercise Name SL heel raise (for #) Side bilateral Equipment Used B hand support on rail (2 fingers) Reps/Minutes 2x7 ea (fatiguing) Comments limited ROM w/ SL raise Manual Therapy Treatment Consent Patient gave verbal consent for manual No treatment Soft Tissue Mobilization R calf Body Location calf muscle belly prone rolling pin, achilles tendon & peroneals Mobilization Type Cross-Friction,Instrument Assisted,Rolling,Strumming, Sustained Pressure,Other Intensity/Depth Superficial Body Position Prone Comments Less tenderness at Achilles today but still more tender along small bulge. Increased tightness of calf muscle belly Joint Mobilizations R foot Joint metatarsals 1-5 gross rotation & AP Direction dorsal-volar Grade II Body Position Hooklying Reps/Duration 1x10 ea Comments To improve toe mobility. Performed along with great toe extension stretch, improved mobility post mobilization. Monitored for pain R talocrural Direction post, ant Grade III Body Position Supine Reps/Duration 4x30 ea Comments PA prone, AP supine PT-OP-T Assessment and Plan Start: 05/16/24 11:17 Freq: Status: Active Protocol: Document 07/24/24 08:59 NM (Rec: 07/24/24 09:47 NM [id number]) Physical Therapy Assessment Goals Five Impairment squats/sit to stands Impairment 5x STS 18.9 sec Short Term Goal (STG) Pt will be able to perform at least 10 bilateral squats without increase in R ankle pain in order to demonstrate improved BLE strength and transfers 06/21/24: 10 sit to stands to elevated surface w/o pain 06/26/24: 10 STS/squats to elevated surface w/o pain an dimproved form STG Duration 6 weeks MET Care Home Goal (LTG) Pt will be able to perform 5x STS in 12 seconds or less in order to reach age-related norms without increase in R ankle pain in order to demonstrate improved BLE strength and transfers LTG Duration 12 weeks Four Impairment gait Impairment difficulty with ambulation due to pain Short Term Goal (STG) Pt will report that she is able to ambulate with pain <4/ 10 in R ankle at least 10 minutes in order to demonstrate improved symptom management and activity tolerance 06/21/24: reports that she can ambulate 10 minutes (walked dog today for first time for 15 minutes) without pain STG Duration 6 weeks MET Care Home Goal (LTG) Pt will report that she is able to ambulate with her dogs without increase in baseline pain in R ankle in order to demonstrate improved symptom management and activity tolerance 06/26/24: ambulated 1 mi for several days without increase in R ankle pain 07/03/24: pt reports that she is able to ambulate at least 1 mi consistently without an increase in ankle pain or needing a break LTG Duration 12 weeks Three Impairment strength Impairment pain with heel raises Short Term Goal (STG) Pt will be able to perform at least 10 standing B heel raises without increase in baseline pain and without compensations in order to demonstrate improved activity tolerance and symptom management 06/21/24: can do several sets of 10 heel raises (B) with minimal compensation and without increase in pain STG Duration 6 weeks 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) Pt will be able to perform at least 1 standing unilateral heel raise without increase in baseline pain and without compensations in order to demonstrate improved activity tolerance 07/03/24:2 sets 7 single leg heel raises on R, 10 on L; no increase in achilles pain LTG Duration 12 weeks PROGRESSING Two Impairment ROM Impairment limited B ankle DF ROM Short Term Goal (STG) Pt will improve B ankle dorsiflexion AROM to at least 5 deg in order to demonstrate improved ROM for gait and transfers, in addition to normalizing gait mechanics 06/21/24: 6 deg R ankle DF STG Duration 8 weeks 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) Pt will improve B ankle dorsiflexion AROM to at least 8 deg in order to demonstrate improved ROM for gait and transfers, in addition to normalizing gait mechanics LTG Duration 12 weeks One Impairment activity tolerance Impairment unable to stand or ambulate for long periods due to pain Care Home Goal (LTG) Pt will report that she is able to stand for at least 30 minutes before taking a break due to B foot/ankle pain in order to demonstrate improved activity tolerance for ADLs 07/24/24: pt reports that she can stand for hours (does not provide a specific number but reports that much greater than 30 min) LTG Duration 12 weeks MET Assessment Summary Assessment Pt reports that she is consistently 3/10 pain or less in R Achilles tendon with exercises today, which is within the acceptable tendon pain level scale. Pt continues to have limitations in full ROM with single leg heel raises, but educated to progress beyond 5 reps as able with slow progression up to 10 as pt tolerates on HEP. Progressed up to deficit B heel raises on leg press with 50#. Pt challenged with balance and maintaining quad/ ankle control on forward step up/back, requiring cues for pelvic and knee stability. Pt continues to progress well toward goals, meeting standing time goal today. Pt would benefit from skilled PT for progressive achilles tendon loading and BLE strengthening to improve overall activity tolerance and functional mobility for improved QOL. Physical Therapy Plan Frequency and Duration Frequency of Treatment 1-2x/wk Duration of treatment (weeks) 12 Plan of Care Start Date 05/16/24 Plan of Care End Date 08/10/24 Therapeutic Interventions Therapeutic Interventions Balance Training,Coordination Training,Gait Training,Home Exercise Program,Joint Mobilizations,Manual Therapy, Neuromuscular Re-education, Orthotic/Prosthetic Management ,Patient/Caregiver Education, Self-Care/Home Management, Sensory Integration,Soft Tissue Mobilization,Taping, Therapeutic Activities, Therapeutic Exercises Modalities Cold Pack/Ice Massage,Hot Packs,Ultrasound Other Therapeutic Interventions Rigid tape Next Visit Focus/Plan Next Note Type Progress Note Next Visit Plan Achilles Tendonitis step up, deficits heel raise SL or elevated SL heel raise in split squat, lunge, single leg balance POC: Stretching ok to tolerance if pain free Current HEP: SL heel raise, deficit heel raise stairs, side steps, fwd/retro amb w/ band, SLS w/ support balance (foam, SLS), deficit heel raise 6 w/ ankle weights 5#+ and single leg heel raise w/o resistance; STS , uni squat on leg press vs step up 4-6 step, reverse lunge, SL stance and balance/ proprioception Talocrural mobilizations RLE, rigid tape only
--- NOTE | 2024-07-31 09:48 | PT.OTN ---
Current Diagnoses Stiffness of right ankle, not elsewhere classified (07/31/24) Achilles tendinitis, right leg (07/31/24) Other lack of coordination (07/31/24) Weakness (07/31/24) Physical Therapy Treatment Note PT-OP-A Visit Information Start: 05/16/24 11:17 Freq: Status: Active Protocol: Document 07/31/24 09:03 NM (Rec: 07/31/24 09:47 NM [id number]) Out-Patient Physical Therapy Visit Information Visit Information Visit Type Progress Note Visit Note 12 visits Visit Start Time 09:07 Visit Stop Time 09:46 Visit Number 10 Evaluation Information Evaluation Date 05/16/24 Precautions Precautions MS, blood pressure PT-OP-B Current Condition Start: 05/16/24 11:17 Freq: Status: Active Protocol: Document 05/16/24 11:18 NM (Rec: 05/16/24 12:16 NM [id number]) Current Condition History of Current Condition Onset Date several months ago Current Complaints pain, weakness, ROM, ADLs History of Current Condition Pt presents with R achilles tendinitis and plantar fasciiitis on the L foot. She recalls that she had this previously 20 years ago, PT helped, same ankle. She has been to the walk in clinic. She has swelling along the Achilles tendon, less swelling . States improving but still limiting. She has been wearing shoes to assist with the plantar fasciitis. Has been stretching R calf in staggered stance. Reports that her ankles feel like they roll in when walking, can see on her shoes, has been a problem and she is aware. She states that the pain comes and goes. Currently, retired. States that has been occurring since early 2023, unknown SHAWNA; she reports that many years ago ( original injury- felt a pop, after starting a running group and was running/playing soccer going from minimal activity to maximal activity). She has diabetes and peripheral numbness in R foot; also has MS. 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 Functional Limitations- Mobility/Gait walk dog (a couple miles) Functional Limitations- Work/School retired Functional Limitations- Recreation/ gardening, gathering Hobbies PT-OP-C Subjective Start: 05/16/24 11:17 Freq: Status: Active Protocol: Document 07/31/24 09:03 NM (Rec: 07/31/24 09:47 NM [id number]) OP-PT Subjective Patient Comments Patient Comments Pt reports that she is doing well. Her ankles are feeling good. Her R achilles is normally 2/10, but reports that occasionally increased with exercises or with walking at the end of a long day. States resolves within 15 minutes. Reports difficulty only with single leg heel raises. She has an appt with Dr. Bernal tomorrow. Pt reports no concerns with PT other than if the bulge on her ankle will go down PT-OP-E Functional Tests Start: 05/16/24 11:17 Freq: Status: Active Protocol: Document 05/16/24 11:18 NM (Rec: 05/16/24 12:16 NM [id number]) Functional Tests Five Times Sit to Stand Test Score 18.9 sec Comments painful in L foot, none in R PT-OP-F Manual Assessment Start: 05/16/24 11:17 Freq: Status: Active Protocol: Document 05/16/24 11:18 NM (Rec: 05/16/24 12:16 NM [id number]) Manual Assessments Soft Tissue Assessment Soft Tissue Mobility Assessment limited B ankle dorsiflexion. Swelling and increased thickness of R achilles tendon , above insertion at heel Joint Mobility Assessment Joint Mobility Assessment Limited R ankle talocrural mobility, B 1st toe extension PT-OP-G Mobility & Gait Start: 05/16/24 11:17 Freq: Status: Active Protocol: Document 05/16/24 11:18 NM (Rec: 05/16/24 12:16 NM [id number]) OP Gait Assessment Gait Gait Assistance Required: Independent Distance (Feet) 150 Assistive Devices Assistive Device None Gait Deviations General Gait Pattern Antalgic,Decreased Stride Length,Decreased Feet Clearance Comments Gait Comments Antalgic gait. She does not put L heel on ground. Demonstrates pronation bilaterally, flat arch on L foot and low arch on R foot. Demonstrates B hip and foot ER with gait, quick toe off bilaterally to decrease stance time. Trunk lean each direction PT-OP-J Posture/Palpation/Skin Start: 05/16/24 11:17 Freq: Status: Active Protocol: Document 05/16/24 11:18 NM (Rec: 05/16/24 12:16 NM [id number]) Posture Evaluation Position Standing Head/C-Spine Posture Forward Head T-Spine Posture Increased Kyphosis Pelvis Posture Anteriorly Tilted Weight Distribution Weight Shifted Left Hip Posture (L) Externally Rotated,(R) Externally Rotated Knee Posture (L) Genu Valgus,(R) Genu Valgus Ankle/Foot Posture (L) Pronated,(R) Pronated Foot Arch (R) Low Arch,(L) No Arch Palpation Assessment Location L foot Palpation Details Mild tenderness of plantar fascia 24 cm around malleoli as comparison R ankle Palpation Details Tenderness and swollen R achilles, 25 cm along entire ankle around malleoli Tenderness proximally and distally but not along heel PT-OP-K Range of Motion Start: 05/16/24 11:17 Freq: Status: Active Protocol: Document 07/31/24 09:03 NM (Rec: 07/31/24 09:47 NM [id number]) Ankle and Foot Goniometric Range of Motion Ankle and Foot Right Dorsiflexion with Knee Flexed 10 Plantarflexion 43 Inversion 25 Eversion 10 Comments inversion and PF painful 06/21/24: 6 deg DF, 50 deg PF, 12 deg eversion, 30 deg inversion (no pain for all) 07/31/24: 10 deg of DF, 43 deg of PF Left Dorsiflexion with Knee Flexed 10 Plantarflexion 40 Inversion 20 Eversion 5 Comments 06/21/24: 5 deg DF 07/31/24: 10 deg of ankle DF PT-OP-L Special Tests Start: 05/16/24 11:17 Freq: Status: Active Protocol: Document 05/16/24 11:18 NM (Rec: 05/16/24 12:16 NM [id number]) Special Tests Foot/Ankle Special Tests Windlass Test Results + Comments R Dennis Test Results - Comments intact B PT-OP-M Strength Start: 05/16/24 11:17 Freq: Status: Active Protocol: Document 07/31/24 09:03 NM (Rec: 07/31/24 09:47 NM [id number]) Ankle/Foot Strength Ankle and Foot Manual Muscle Testing Right Dorsiflexion (L4) 4+ Good+ Plantarflexion (S1) 4- Good- Inversion 4+ Good+ Eversion (S1) 4+ Good+ Comments Unable to perform a single heel raise Can perform 3 B heel raises, increased pain 06/21/24: 4+/5 for all; 10 bilateral w/o pain 07/31/24: 10 ea single leg heel raise w/o pain but small ROM Left Dorsiflexion (L4) 4+ Good+ Plantarflexion (S1) 4- Good- Inversion 4+ Good+ Eversion (S1) 4+ Good+ Comments Unable to perform a single heel raise, increased pain with effort Can perform 3 B heel raises, increased pain 06/21/24: 10 bilateral w/o pain 07/31/24: 10 ea single leg heel raise w/o pain but small ROM PT-OP-Q Treatments Start: 05/16/24 11:17 Freq: Status: Active Protocol: Document 07/31/24 09:03 NM (Rec: 07/31/24 09:47 NM [id number]) Gym Equipment Shuttle Recovery unilateral squat Details cued control, full TKE w/o locking, limit valgus Resistance 75# (3 teal) Reps/Time 3x10 ea Therapeutic Exercises Sitting Exercises sit to stand Sitting Exercise Name 1. STS, 2. 5x STS Side bilateral Reps/Minutes 1. 5, 2. 12 seconds Standing Exercises hip 3 way Standing Exercise Name hip flex, hip abd, hip ext Side bilateral Resistance level 2 band at thighs Equipment Used hand support for balance Reps/Minutes 10 ea heel raises Standing Exercise Name 1. SL heel raise (for #), 2. DL deficit heel raises on stairs Side bilateral Equipment Used B hand support on rail (2 fingers) Reps/Minutes 1. 10 R, 10 L; 2. 3x10 Comments limited ROM w/ SL raise, pain free PT-OP-T Assessment and Plan Start: 05/16/24 11:17 Freq: Status: Active Protocol: Document 07/31/24 09:03 NM (Rec: 07/31/24 09:47 NM [id number]) Physical Therapy Assessment Goals Five Impairment squats/sit to stands Impairment 5x STS 18.9 sec Short Term Goal (STG) Pt will be able to perform at least 10 bilateral squats without increase in R ankle pain in order to demonstrate improved BLE strength and transfers 06/21/24: 10 sit to stands to elevated surface w/o pain 06/26/24: 10 STS/squats to elevated surface w/o pain an dimproved form STG Duration 6 weeks MET Hot Stone Setter Goal (LTG) Pt will be able to perform 5x STS in 12 seconds or less in order to reach age-related norms without increase in R ankle pain in order to demonstrate improved BLE strength and transfers 07/31/24: 12 sec STS w/o pain LTG Duration 12 weeks MET Four Impairment gait Impairment difficulty with ambulation due to pain Short Term Goal (STG) Pt will report that she is able to ambulate with pain <4/ 10 in R ankle at least 10 minutes in order to demonstrate improved symptom management and activity tolerance 06/21/24: reports that she can ambulate 10 minutes (walked dog today for first time for 15 minutes) without pain STG Duration 6 weeks MET Hot Stone Setter Goal (LTG) Pt will report that she is able to ambulate with her dogs without increase in baseline pain in R ankle in order to demonstrate improved symptom management and activity tolerance 06/26/24: ambulated 1 mi for several days without increase in R ankle pain 07/03/24: pt reports that she is able to ambulate at least 1 mi consistently without an increase in ankle pain or needing a break 07/31/24: pt confirms that she is able to ambulate for a mile or more without any ankle pain LTG Duration 12 weeks MET Three Impairment strength Impairment pain with heel raises Short Term Goal (STG) Pt will be able to perform at least 10 standing B heel raises without increase in baseline pain and without compensations in order to demonstrate improved activity tolerance and symptom management 06/21/24: can do several sets of 10 heel raises (B) with minimal compensation and without increase in pain STG Duration 6 weeks MET Retirement Goal (LTG) Pt will be able to perform at least 1 standing unilateral heel raise without increase in baseline pain and without compensations in order to demonstrate improved activity tolerance 07/03/24:2 sets 7 single leg heel raises on R, 10 on L; no increase in achilles pain 07/31/24: 10 single heel raise ea with small ROM but no pain LTG Duration 12 weeks PROGRESSING Two Impairment ROM Impairment limited B ankle DF ROM Short Term Goal (STG) Pt will improve B ankle dorsiflexion AROM to at least 5 deg in order to demonstrate improved ROM for gait and transfers, in addition to normalizing gait mechanics 06/21/24: 6 deg R ankle DF STG Duration 8 weeks MET Retirement Goal (LTG) Pt will improve B ankle dorsiflexion AROM to at least 8 deg in order to demonstrate improved ROM for gait and transfers, in addition to normalizing gait mechanics 07/31/24: 10 deg of B ankle DF LTG Duration 12 weeks MET One Impairment activity tolerance Impairment unable to stand or ambulate for long periods due to pain Hot Stone Setter Goal (LTG) Pt will report that she is able to stand for at least 30 minutes before taking a break due to B foot/ankle pain in order to demonstrate improved activity tolerance for ADLs 07/24/24: pt reports that she can stand for hours (does not provide a specific number but reports that much greater than 30 min) LTG Duration 12 weeks MET Progress Towards Goals Progress Towards Goals Progressing Toward Goals,Goals Met Assessment Summary Assessment Pt tolerated session well, demonstrating improved tolerance for exercise today. Pt able to achieve 10 single leg heel raises with limited ROM but without pain. Pt also able to progress up to 3 sets of 10 deficit heel raises on stairs without discomfort. Continues to have some decreased hip strength globally; trialed hip [address] way with slider to address single leg hip strength. Requires at least 1 hand support for balance with single leg activities. Progressed to 75# for single leg squat on leg press. She would benefit from skilled PT for balance and progressive tendon loading in order to improve symptom management and decrease fall risk. Physical Therapy Plan Frequency and Duration Frequency of Treatment 1-2x/wk Duration of treatment (weeks) 12 Plan of Care Start Date 05/16/24 Plan of Care End Date 08/10/24 Therapeutic Interventions Therapeutic Interventions Balance Training,Coordination Training,Gait Training,Home Exercise Program,Joint Mobilizations,Manual Therapy, Neuromuscular Re-education, Orthotic/Prosthetic Management ,Patient/Caregiver Education, Self-Care/Home Management, Sensory Integration,Soft Tissue Mobilization,Taping, Therapeutic Activities, Therapeutic Exercises Modalities Cold Pack/Ice Massage,Hot Packs,Ultrasound Other Therapeutic Interventions Rigid tape Next Visit Focus/Plan Next Note Type Treatment Note Next Visit Plan Achilles Tendonitis step up, uni squat, elevated SL heel raise in split squat, lunge, single leg balance, Balance on stable/unstable surface POC: Stretching ok to tolerance if pain free Current HEP: SL heel raise, deficit heel raise stairs, side steps, fwd/retro amb w/ band, SLS w/ support balance (foam, SLS), deficit heel raise 6 w/ ankle weights 5#+ and single leg heel raise w/o resistance; STS , uni squat on leg press vs step up 4-6 step, reverse lunge, SL stance and balance/ proprioception Talocrural mobilizations RLE, rigid tape only
--- NOTE | 2024-08-07 11:55 | PT.OTN ---
Current Diagnoses Stiffness of right ankle, not elsewhere classified (08/07/24) Achilles tendinitis, right leg (08/07/24) Other lack of coordination (08/07/24) Weakness (08/07/24) Physical Therapy Treatment Note PT-OP-A Visit Information Start: 05/16/24 11:17 Freq: Status: Active Protocol: Document 08/07/24 09:02 NM (Rec: 08/07/24 09:46 NM [id number]) Out-Patient Physical Therapy Visit Information Visit Information Visit Type Treatment Note Visit Note 12 visits Visit Start Time 09:07 Visit Stop Time 09:46 Visit Number 11 Evaluation Information Evaluation Date 05/16/24 Precautions Precautions MS, blood pressure PT-OP-B Current Condition Start: 05/16/24 11:17 Freq: Status: Active Protocol: Document 05/16/24 11:18 NM (Rec: 05/16/24 12:16 NM [id number]) Current Condition History of Current Condition Onset Date several months ago Current Complaints pain, weakness, ROM, ADLs History of Current Condition Pt presents with R achilles tendinitis and plantar fasciiitis on the L foot. She recalls that she had this previously 20 years ago, PT helped, same ankle. She has been to the walk in clinic. She has swelling along the Achilles tendon, less swelling . States improving but still limiting. She has been wearing shoes to assist with the plantar fasciitis. Has been stretching R calf in staggered stance. Reports that her ankles feel like they roll in when walking, can see on her shoes, has been a problem and she is aware. She states that the pain comes and goes. Currently, retired. States that has been occurring since early 2023, unknown SHAWNA; she reports that many years ago ( original injury- felt a pop, after starting a running group and was running/playing soccer going from minimal activity to maximal activity). She has diabetes and peripheral numbness in R foot; also has MS. 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 Functional Limitations- Mobility/Gait walk dog (a couple miles) Functional Limitations- Work/School retired Functional Limitations- Recreation/ gardening, gathering Hobbies PT-OP-C Subjective Start: 05/16/24 11:17 Freq: Status: Active Protocol: Document 08/07/24 09:02 NM (Rec: 08/07/24 09:46 NM [id number]) OP-PT Subjective Patient Comments Patient Comments Pt late to session so decreased time. Pt reports 2/ 10 pain in R achilles, only with walking. She states notices it, but reports significantly less than when she started. Saw her MD this past week; educated her to keep doing exercises. States ready to d/c today as POC extending after conversation with PT regarding auth. PT-OP-E Functional Tests Start: 05/16/24 11:17 Freq: Status: Active Protocol: Document 05/16/24 11:18 NM (Rec: 05/16/24 12:16 NM [id number]) Functional Tests Five Times Sit to Stand Test Score 18.9 sec Comments painful in L foot, none in R PT-OP-F Manual Assessment Start: 05/16/24 11:17 Freq: Status: Active Protocol: Document 05/16/24 11:18 NM (Rec: 05/16/24 12:16 NM [id number]) Manual Assessments Soft Tissue Assessment Soft Tissue Mobility Assessment limited B ankle dorsiflexion. Swelling and increased thickness of R achilles tendon , above insertion at heel Joint Mobility Assessment Joint Mobility Assessment Limited R ankle talocrural mobility, B 1st toe extension PT-OP-G Mobility & Gait Start: 05/16/24 11:17 Freq: Status: Active Protocol: Document 05/16/24 11:18 NM (Rec: 05/16/24 12:16 NM [id number]) OP Gait Assessment Gait Gait Assistance Required: Independent Distance (Feet) 150 Assistive Devices Assistive Device None Gait Deviations General Gait Pattern Antalgic,Decreased Stride Length,Decreased Feet Clearance Comments Gait Comments Antalgic gait. She does not put L heel on ground. Demonstrates pronation bilaterally, flat arch on L foot and low arch on R foot. Demonstrates B hip and foot ER with gait, quick toe off bilaterally to decrease stance time. Trunk lean each direction PT-OP-J Posture/Palpation/Skin Start: 05/16/24 11:17 Freq: Status: Active Protocol: Document 05/16/24 11:18 NM (Rec: 05/16/24 12:16 NM [id number]) Posture Evaluation Position Standing Head/C-Spine Posture Forward Head T-Spine Posture Increased Kyphosis Pelvis Posture Anteriorly Tilted Weight Distribution Weight Shifted Left Hip Posture (L) Externally Rotated,(R) Externally Rotated Knee Posture (L) Genu Valgus,(R) Genu Valgus Ankle/Foot Posture (L) Pronated,(R) Pronated Foot Arch (R) Low Arch,(L) No Arch Palpation Assessment Location L foot Palpation Details Mild tenderness of plantar fascia 24 cm around malleoli as comparison R ankle Palpation Details Tenderness and swollen R achilles, 25 cm along entire ankle around malleoli Tenderness proximally and distally but not along heel PT-OP-K Range of Motion Start: 05/16/24 11:17 Freq: Status: Active Protocol: Document 08/07/24 09:02 NM (Rec: 08/07/24 09:46 NM [id number]) Ankle and Foot Goniometric Range of Motion Ankle and Foot Right Dorsiflexion with Knee Flexed 10 Plantarflexion 43 Inversion 25 Eversion 10 Comments inversion and PF painful 06/21/24: 6 deg DF, 50 deg PF, 12 deg eversion, 30 deg inversion (no pain for all) 08/07/24, 07/31/24: 10 deg of DF , 43 deg of PF Left Dorsiflexion with Knee Flexed 10 Plantarflexion 40 Inversion 20 Eversion 5 Comments 06/21/24: 5 deg DF 08/07/24, 07/31/24: 10 deg of ankle DF PT-OP-L Special Tests Start: 05/16/24 11:17 Freq: Status: Active Protocol: Document 05/16/24 11:18 NM (Rec: 05/16/24 12:16 NM [id number]) Special Tests Foot/Ankle Special Tests Windlass Test Results + Comments R Dennis Test Results - Comments intact B PT-OP-M Strength Start: 05/16/24 11:17 Freq: Status: Active Protocol: Document 08/07/24 09:02 NM (Rec: 08/07/24 09:46 NM [id number]) Ankle/Foot Strength Ankle and Foot Manual Muscle Testing Right Dorsiflexion (L4) 4+ Good+ Plantarflexion (S1) 4- Good- Inversion 4+ Good+ Eversion (S1) 4+ Good+ Comments Unable to perform a single heel raise Can perform 3 B heel raises, increased pain 06/21/24: 4+/5 for all; 10 bilateral w/o pain 08/07/24, 07/31/24: 10 ea single leg heel raise w/o pain but small ROM Left Dorsiflexion (L4) 4+ Good+ Plantarflexion (S1) 4- Good- Inversion 4+ Good+ Eversion (S1) 4+ Good+ Comments Unable to perform a single heel raise, increased pain with effort Can perform 3 B heel raises, increased pain 06/21/24: 10 bilateral w/o pain 08/07/24, 07/31/24: 10 ea single leg heel raise w/o pain but small ROM PT-OP-Q Treatments Start: 05/16/24 11:17 Freq: Status: Active Protocol: Document 08/07/24 09:02 NM (Rec: 08/07/24 09:46 NM [id number]) Gym Equipment Shuttle Recovery unilateral squat Details cued control, full TKE w/o locking, limit valgus Resistance 75# (3 teal) Reps/Time 2x15 ea Therapeutic Exercises Sitting Exercises sit to stand Sitting Exercise Name STS Side bilateral Resistance level 2 band at thighs Equipment Used standard chair; arms across chest for more challenging Reps/Minutes 15 Standing Exercises ankle DF Side bilateral Resistance AROM Equipment Used back supported at wall Reps/Minutes 2x15 Comments challenging for pt hip 3 way Standing Exercise Name hip flex, hip abd, hip ext Side bilateral Resistance level 2 band at thighs Equipment Used hand support for balance, slider under foot Reps/Minutes 10 ea DF mobilization Side bilateral Equipment Used 6 step Reps/Minutes 2 sets to ea toe heel raises Standing Exercise Name 1. SL heel raise (for #), 2. heel raise on step (front elevated) Side bilateral Equipment Used B hand support on rail (2 fingers) Reps/Minutes 1. 10 ea, 2. 20 ea Comments limited ROM w/ SL raise, pain free PT-OP-T Assessment and Plan Start: 05/16/24 11:17 Freq: Status: Active Protocol: Document 08/07/24 09:02 NM (Rec: 08/07/24 09:46 NM [id number]) Physical Therapy Assessment Goals Five Impairment squats/sit to stands Impairment 5x STS 18.9 sec Short Term Goal (STG) Pt will be able to perform at least 10 bilateral squats without increase in R ankle pain in order to demonstrate improved BLE strength and transfers 06/21/24: 10 sit to stands to elevated surface w/o pain 06/26/24: 10 STS/squats to elevated surface w/o pain an dimproved form STG Duration 6 weeks MET Mcc Goal (LTG) Pt will be able to perform 5x STS in 12 seconds or less in order to reach age-related norms without increase in R ankle pain in order to demonstrate improved BLE strength and transfers 07/31/24: 12 sec STS w/o pain LTG Duration 12 weeks MET Four Impairment gait Impairment difficulty with ambulation due to pain Short Term Goal (STG) Pt will report that she is able to ambulate with pain <4/ 10 in R ankle at least 10 minutes in order to demonstrate improved symptom management and activity tolerance 06/21/24: reports that she can ambulate 10 minutes (walked dog today for first time for 15 minutes) without pain STG Duration 6 weeks MET Mcc Goal (LTG) Pt will report that she is able to ambulate with her dogs without increase in baseline pain in R ankle in order to demonstrate improved symptom management and activity tolerance 06/26/24: ambulated 1 mi for several days without increase in R ankle pain 07/03/24: pt reports that she is able to ambulate at least 1 mi consistently without an increase in ankle pain or needing a break 07/31/24: pt confirms that she is able to ambulate for a mile or more without any ankle pain LTG Duration 12 weeks MET Three Impairment strength Impairment pain with heel raises Short Term Goal (STG) Pt will be able to perform at least 10 standing B heel raises without increase in baseline pain and without compensations in order to demonstrate improved activity tolerance and symptom management 06/21/24: can do several sets of 10 heel raises (B) with minimal compensation and without increase in pain STG Duration 6 weeks MET Mcc Goal (LTG) Pt will be able to perform at least 1 standing unilateral heel raise without increase in baseline pain and without compensations in order to demonstrate improved activity tolerance 07/03/24:2 sets 7 single leg heel raises on R, 10 on L; no increase in achilles pain 07/31/24: 10 single heel raise ea with small ROM but no pain LTG Duration 12 weeks MET Two Impairment ROM Impairment limited B ankle DF ROM Short Term Goal (STG) Pt will improve B ankle dorsiflexion AROM to at least 5 deg in order to demonstrate improved ROM for gait and transfers, in addition to normalizing gait mechanics 06/21/24: 6 deg R ankle DF STG Duration 8 weeks MET Furnace Door Tender Goal (LTG) Pt will improve B ankle dorsiflexion AROM to at least 8 deg in order to demonstrate improved ROM for gait and transfers, in addition to normalizing gait mechanics 07/31/24: 10 deg of B ankle DF LTG Duration 12 weeks MET One Impairment activity tolerance Impairment unable to stand or ambulate for long periods due to pain Furnace Door Tender Goal (LTG) Pt will report that she is able to stand for at least 30 minutes before taking a break due to B foot/ankle pain in order to demonstrate improved activity tolerance for ADLs 07/24/24: pt reports that she can stand for hours (does not provide a specific number but reports that much greater than 30 min) LTG Duration 12 weeks MET Progress Towards Goals Progress Towards Goals Goals Met Assessment Summary Assessment Pt tolerated session well, no increase in R Achilles tendon pain during session. Continues to remain within acceptable pain range for tendon loading programs during and after sessions. PT and pt discussed discharge today as pt is out of auth within a few weeks and her plan is expiring; pt requesting discharge today instead of extending plan, states ready for discharge. PT in agreement based on pt progression and pain management. Remainder of session spent on establishing maintenance HEP. Pt demonstrates mild improvement in single leg heel raise height, but still limited ROM. Trialed front elevated heel raise, which pt able to perform better than body weight. Progressed resistance lever by increasing lever arm for hip 3 way. Good response to standing ankle dorsiflexion AROM and mobilization. Cued only for form during activities. Physical Therapy Plan Frequency and Duration Frequency of Treatment 1-2x/wk Duration of treatment (weeks) 12 Plan of Care Start Date 05/16/24 Plan of Care End Date 08/10/24 Therapeutic Interventions Therapeutic Interventions Balance Training,Coordination Training,Gait Training,Home Exercise Program,Joint Mobilizations,Manual Therapy, Neuromuscular Re-education, Orthotic/Prosthetic Management ,Patient/Caregiver Education, Self-Care/Home Management, Sensory Integration,Soft Tissue Mobilization,Taping, Therapeutic Activities, Therapeutic Exercises Modalities Cold Pack/Ice Massage,Hot Packs,Ultrasound Other Therapeutic Interventions Rigid tape Discharge Physical Therapy Discharge Reasons Goals Met Next Visit Focus/Plan Next Visit Plan discharge from PT
== END 2024-08-07 14:55 | disposition home or self-care (01) ==
LOC: PHYS 09:00
PROVIDERS: Family Provider Internal Medicine; PCP Internal Medicine; Referring Provider Internal Medicine; Visit Provider Internal Medicine
DX: M76.61 Achilles tendinitis, right leg (principal); R53.1 Weakness; M25.671 Stiffness of right ankle, not elsewhere classified; R27.8 Other lack of coordination
CPT/HCPCS: 97110; 97140; 97162; 97535

== ENCOUNTER → 2024-08-10 10:18 | Outpatient (CLI) | payer OTHER, SELFPAY ==
--- NOTE | 2024-08-10 10:20 | DI.RAD.S_ITS ---
PROCEDURE: XR DEXA AXIAL SKELETON INDICATIONS: SCREENING FOR OSTEOPOROSIS COMPARISON: None. FINDINGS: Lumbar Spine: Bone mineral density 1.068 g/cm2, T score 0.2, normal. Left Hip: Bone mineral density 1.073 g/cm2, T score 1.1, normal. Left Femoral Neck: Bone mineral density 0.779 g/cm2, T score -0.6, normal. Right Hip: Bone mineral density 1.079 g/cm2, T score 1.1, normal. Right Femoral Neck: Bone mineral density 0.849 g/cm2, T score 0, normal. Fracture Risk Calculation (when applicable): Not reported due to normal bone mineral density. (T score greater or equal to -1.0 to: NORMAL) (T score from -1.1 to -2.4: OSTEOPENIA) (T score less than or equal to -2.5: OSTEOPOROSIS) IMPRESSION: Normal bone mineral density. Follow-up guidelines as follows: Osteoporosis: Consider a repeat DEXA and Vertebral Fracture Assessment (VFA) exam in 2 years or sooner if medically necessary, to reassess this patient's status. Osteopenia: Consider a repeat DEXA in 2-3 years to reassess this patient's status, or if there is a new clinical indication. Normal: Consider a repeat DEXA in 5 years or sooner, or if there is a new clinical indication. All treatment decisions require clinical judgment and consideration of individual patient factors, including patient preferences, comorbidities, previous drug use, risk factors not captured in the FRAX model (e.g., frailty, falls, vitamin D deficiency, increased bone turnover, interval significant decline in bone density ) and possible under- or over-estimation of fracture risk by FRAX. In addition, the NOF Guide recommends that FDA-approved medical therapies be considered in postmenopausal women and men age >= 50 years with a: * Hip or vertebral (clinical or morphometric) fracture * T-score of <=-2.5 at the spine or hip * Ten-year fracture probability by FRAX of >= 3% for hip fracture or >=20% for major osteoporotic fracture. People with diagnosed cases of osteoporosis or at high risk for fracture should have regular bone mineral density tests. For patients eligible for Medicare, routine testing is allowed once every 2 years. The testing frequency can be increased to one year for patients who have rapidly progressing disease, those who are receiving or discontinuing medical therapy to restore bone mass, or have additional risk factors. Dictated by: Chadwick Bryson M.D. on 08/10/2024 at 15:15 Approved by: Chadwick Bryson M.D. on 08/10/2024 at 15:16
== END ==
LOC: RAD 10:19
PROVIDERS: Family Provider Internal Medicine; PCP Internal Medicine; Referring Provider Internal Medicine; Visit Provider Internal Medicine
DX: Z78.0 Asymptomatic menopausal state (principal); Z13.820 Encounter for screening for osteoporosis
CPT/HCPCS: 77080